=== PATIENT | female | born 1930 | race Caucasian/White ===

== ENCOUNTER 2017-01-08 01:02 | Inpatient (IN) ==
[2017-01-08] MEDS ORDERED: LACTATED RINGERS 1,000 ML IV ONE (01:45)
--- NOTE | 2017-01-08 01:47 | Emergency Department Note ---
IMoy Emily, am scribing for, and in the presence of, Abe Zamora MD 01:38. Noah Shepard Hans, MD, personally performed the services described in this documentation, ascribed by Eleonora Winter in my presence, and it is both accurate and complete . Arrival - Arrival Chief Complaint: Abdominal / Flank Pain Stated Complaint: Abd pain ED Nursing Triage Note: C/C abdominal pain, N/V started 01/07/17. Pt seen at [facility] ER by Agus Herzog small bowel obstruction. Pt has IV 20G R AC, has been given 1L NS, 2mg Morphine, 8mg Zofran. Pt has NG tube. Pt has history of SBO. Mode of Arrival: Stretcher Limitations: No Limitations Source: Patient Time Seen by Provider: 01/08/17 01:22 - History of Present Illness HPI Narrative: Pt is a 86 y/o female who came to ED by EMS with c/o abdomen pain with N/V that started yesterday. Pt was seen at [facility] and dx with SBO. Pt took laxative before going to [facility] small . Pt has NG tube with some relief. 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 Onset (ago): day(s) Consistency: constant Severity: moderate Severity scale (1-10): 7 Quality: aching Allergies/Adverse Reactions: Allergies Allergy/AdvReac Type Severity Reaction Status Date / Time Penicillins Allergy Intermediate RASH Verified 01/08/17 01:12 promethazine [From Phenergan] Allergy Intermediate RASH Verified 01/08/17 01:12 Home Medications: Home Medications Medication Instructions Recorded Confirmed Type Cholecalciferol (Vitamin D3) 1,000 unit PO DAILY 03/26/16 03/28/16 History [Vitamin D3] Cyanocobalamin Tab [Vitamin B12 1,000 mcg PO DAILY 03/26/16 03/28/16 History Tab] Esomeprazole Magnesium [Nexium] 20 mg PO DAILY 03/26/16 03/28/16 History Hyoscyamine Sulfate 0.125 mg PO Q4H 03/26/16 03/28/16 History Levothyroxine Tab [Synthroid Tab] 75 mcg PO DAILY 03/26/16 03/28/16 History Multivit-Min/FA/Lycopen/Lutein 1 each PO DAILY 03/26/16 03/28/16 History [Centrum Silver Tablet] Multivitamin (Ocuvite) [Ocuvite] 1 tablet PO DAILY 03/26/16 03/28/16 History Ondansetron Tab [Zofran Tab] 4 mg PO Q6HR 03/26/16 03/28/16 History Oxycodone HCl/Acetaminophen 1 each PO Q4-6H 03/26/16 03/28/16 History [Oxycodone-Acetaminophen 10-325] Simvastatin [Zocor] 40 mg PO DAILY 03/26/16 03/28/16 History amLODIPine [Norvasc] 5 mg PO DAILY 03/26/16 03/28/16 History Review of System - Review of System 12 point system: reviewed and no additional remarkable complaints except as stated - Review of System Constitutional: Absent: fever Respiratory: Absent: respiratory distress Cardiovascular: Absent: chest pain Gastrointestinal: Present: abdominal pain, nausea, vomiting Medical,Surgical,& Family Hx - Medical History Cardio: History of: Hypertension HEENT: History of: Eye Problem (cataracts) Gastrointestinal: History of: Bowel Obstruction, GERD, GI Problems (SBO) - Surgical History Surgical History: noncontributory Cardiac Surgeries: Patient Denies: Carotid Endarterectomy, Internal Defibrillator HEENT Surgeries: Surgical HX of: Eye Surgery (cataracts removed) Patient denies: Carotid Endarterectomy - Family History Family History: noncontributory Family History: Reports;: Family Cancer (Aunt Breast CA, Mother Lung CA), Family Diabetes (Daughter Type 1), Family Heart Disease (Father), Family Hypertension (Mother) Denies;: Family Anesthesia Reaction, Family Psychiatric Problems, Family Stroke - Social History Smoking Status: Never smoker Frequency of Alcohol Use: None Type of Drug Use: None Marital Status: Lives With:: Spouse Functional capacity: independent ambulation Exam Vital Signs: Vital Signs Temperature 98.1 F 01/08/17 01:02 Pulse Rate 90 01/08/17 01:02 Respiratory Rate 16 01/08/17 01:02 Blood Pressure 150/87 01/08/17 01:02 O2 Sat by Pulse Oximetry 97 01/08/17 01:02 - General General appearance: alert, in no apparent distress - Head Head exam: Present: atraumatic, normocephalic - Eye Eye exam: Present: PERRL, EOMI - ENT ENT exam: Present: mucous membranes moist. Absent: mucous membranes dry - Neck Neck exam: Present: full ROM. Absent: tenderness - Chest Chest inspection: Present: symmetric chest wall rise. Absent: tenderness - Respiratory Respiratory exam: Present: normal lung sounds bilaterally. Absent: respiratory distress - Cardiovascular Cardiovascular exam: Present: regular rate, normal rhythm, normal heart sounds - Abdominal Exam Abdominal exam: Present: soft, distention, tenderness (minimal RLQ), hypoactive bowel sounds. Absent: guarding, rebound, normal bowel sounds - Extremities Exam Extremities exam: Present: full ROM. Absent: tenderness, pedal edema - Neurological Exam Neurological exam: Present: alert, oriented X3, CN II-XII intact. Absent: motor sensory deficit - Psychiatric Psychiatric exam: Present: normal affect, normal mood - Skin Skin exam: Present: warm, dry Course Course Narrative: This patient was evaluated in the ER and her imaging and lab work from [place] was reviewed. Patient had a small bowel obstruction. I discussed her admission with Dr. Zeeshan WAGNER who agreed to admit her for bowel rest, NG tube decompression, and IV fluids and antibiotics. We will repeat her labs in the morning. Disposition Clinical Impression: Small bowel obstruction, Bowel obstruction Case discussed with: patient, patient's family Disposition: Still a Patient Condition: Stable Instructions: Bowel Obstruction (ED) Time of Disposition: 01:47
[2017-01-08] MEDS ORDERED: PROMETHAZINE 25 MG/1 ML VIAL IM PRN (02:37)
[2017-01-08] MEDS ORDERED: ACETAMINOPHEN 325 MG TABLET PO PRN (02:37)
[2017-01-08] MEDS: LACTATED RINGERS 1,000 ML IV SCH ×3 (03:40→23:16)
[2017-01-08] MEDS: CIPROFLOXACIN INJ 400 MG in PREMIX 1 EACH IV SCH ×2 (04:15→15:01)
[2017-01-08] MEDS: metroNIDAZOLE INJ 500 MG in PREMIX 1 EACH IV SCH ×3 (05:22→18:26)
[2017-01-08] MEDS: PANTOPRAZOLE 40 MG TABLET PO SCH (08:07)
[2017-01-08 08:49] LABS: Basophils # 0.1 10*3/uL (0.0-0.2); Basophils % 0.4 % (0.0-0.8); Eosinophils # 0.1 10*3/uL (0.0-0.87); Eosinophils % 0.9 % (0.00-10.9); Hematocrit 40.8 VOL% (35.7-47.0); Hemoglobin 14.1 GM/DL (12.0-16.0); Immature Granulocytes % 0.4 %; Immature Granulocytes Absolute 0.06 #; Lymphocytes # 1.5 10*3/uL (1.4-4.0); Lymphocytes % 11.2 % (21.3-54.2); Mean Corpuscular HGB Conc 34.6 GM/DL (32-36); Mean Corpuscular Hemoglobin 32 PG (27-34); Mean Corpuscular Volume 91.5 FL (87-102); Mean Platelet Volume 10.4 FL (9.6-12.0); Monocytes # 1.3 10*3/uL (0.11-0.8); Monocytes % 9.8 % (1.7-12.7); Neutrophils # 10.4 10*3/uL (1.4-7.4); Neutrophils % 77.3 % (38.7-73.9); Platelet Count 251 T/CUMM (130-400); Red Blood Count 4.46 MC/CUMM (3.8-5.5); Red Cell Distribution Width 13.7 % (9.3-17.3); White Blood Count 13.5 T/CUMM (4-12)
--- NOTE | 2017-01-08 09:13 | General Surg History&Physical ---
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 She is responded to conservative treatment therefore actually feels his gastric tube is in place. I had a long discussion with her and her family once again about conservative treatment. Obviously this would be better for her if we can avoid laparotomy. If she fails to respond to conservative treatment and we may have to consider surgery. Current Visit: Yes History of Present Illness Chief complaint: Abdominal pain History of present illness: Ms. Cordero is a 86 year old female Who yesterday developed a right sided abdominal pain and cramping. This was intermittent and is continued since admission. The pain is moderate in severity and does not radiate. It was associated with nausea and vomiting. This is the exact same symptoms that she has had with her multiple other previous small bowel obstructions. She has had multiple previous admissions for small bowel obstruction. She had surgery for bowel obstructions in the and and more recently has had nonoperative treatment which is been is successful. Her last episode was back in March. CT scan shows small bowel obstruction with a transition point in the right lower quadrant. Home Medications Medication Instructions Recorded Confirmed Type Cholecalciferol (Vitamin D3) 1,000 unit PO DAILY 03/26/16 01/08/17 History [Vitamin D3] Cyanocobalamin Tab [Vitamin B12 1,000 mcg PO DAILY 03/26/16 01/08/17 History Tab] Esomeprazole Magnesium [Nexium] 20 mg PO DAILY 03/26/16 01/08/17 History Levothyroxine Tab [Synthroid Tab] 75 mcg PO DAILY 03/26/16 01/08/17 History Multivit-Min/FA/Lycopen/Lutein 1 each PO DAILY 03/26/16 01/08/17 History [Centrum Silver Tablet] Ondansetron Tab [Zofran Tab] 4 mg PO Q6HR PRN 03/26/16 01/08/17 History Simvastatin [Zocor] 40 mg PO DAILY 03/26/16 01/08/17 History amLODIPine [Norvasc] 5 mg PO DAILY 03/26/16 01/08/17 History Ferrous Fumarate [Larisa Sequels] 50 mg PO QOTHER DAY 01/08/17 01/08/17 History Allergies Allergy/AdvReac Type Severity Reaction Status Date / Time Penicillins Allergy Intermediate RASH Verified 01/08/17 01:12 promethazine [From Phenergan] Allergy Intermediate RASH Verified 01/08/17 01:12 Medical,Surgical,& Family Hx - Medical History Cardio: History of: Hypertension HEENT: History of: Eye Problem (cataracts) Endocrine: History of: Thyroid Disorder Gastrointestinal: History of: Bowel Obstruction, GERD, GI Problems (SBO) - Surgical History Cardiac Surgeries: Patient Denies: Carotid Endarterectomy, Internal Defibrillator HEENT Surgeries: Surgical HX of: Eye Surgery (cataracts removed) Patient denies: Carotid Endarterectomy Orthopedic Surgeries: Surgical HX of;: Orthopedic Surgery (shoulder), Total Knee Replacement (partial knee replacement) - Family History Family History: Reports;: Family Cancer (Aunt Breast CA, Mother Lung CA), Family Diabetes (Daughter Type 1), Family Heart Disease (Father), Family Hypertension (Mother) Denies;: Family Anesthesia Reaction, Family Psychiatric Problems, Family Stroke - Social History Smoking Status: Never smoker Frequency of Alcohol Use: None Type of Drug Use: None Exam - Constitutional Vitals: Period Temp Pulse Resp BP Sys/Rondon Pulse Ox Last 24 Hr 98.0 F-98.8 F 79-90 16-20 135-150/65-87 95-98 General appearance: no acute distress - Head Head exam: Present: normocephalic - Eye Eye exam: Absent: scleral icterus - ENT Mouth exam: Present: normal voice - Neck Neck exam: Present: trachea midline. Absent: tenderness - Respiratory Respiratory exam: Present: clear to auscultation bilaterally. Absent: accessory muscle use - Cardiovascular Cardiovascular exam: Present: RRR - GI/Abdominal GI/Abdominal exam: Present: distended, hypoactive bowel sounds, soft. Absent: guarding, tenderness, rebound - Extremities Exam Extremities exam: Absent: edema - Back Exam Back exam: Present: normal inspection - Neurological Exam Neurological exam: Present: alert, oriented X3. Absent: motor sensory deficit Speech: Present: normal - Skin Skin exam: Present: normal color - Constitutional Constitutional: Absent: anorexia, chills, fever(s) - Cardiovascular Cardiovascular: Absent: chest pain at rest, chest pain with activity, dyspnea, dyspnea on exertion, syncope - Respiratory Respiratory: Absent: cough, dyspnea, hemoptysis, dyspnea on exertion - Gastrointestinal Gastrointestinal: Present: abdominal pain, bloating, cramping, nausea, vomiting. Absent: hematemesis, hematochezia, jaundice - Genitourinary Genitourinary: Absent: dysuria, hematuria - Musculoskeletal Musculoskeletal: Absent: back pain - Neurological Neurological: Absent: focal weakness, syncope - Endocrine Endocrine: Absent: polyuria Hematologic/Lymphatic: Absent: easy bleeding, easy bruising Results - Labs CBC & BMP: 01/08/17 08:22 Lab Results: I have reviewed the past 24 hour labs - Diagnostic Findings Procedure: CT Abdomen and Pelvis: report reviewed by me
[2017-01-08 09:17] LABS: Calcium 8.6 MG/DL (8.5-10.1); Osmolality,Calculated 276.5 MOS/KG (273-304); Potassium 3.8 MMOL/L (3.5-5.1)
[2017-01-08] MEDS: ONDANSETRON 4 MG/2 ML VIAL IV PRN (17:21)
[2017-01-08] MEDS: HYDROmorphone 2 MG/1 ML VIAL IV PRN (17:25)
[2017-01-09] MEDS: CIPROFLOXACIN INJ 400 MG in PREMIX 1 EACH IV SCH ×2 (02:44→15:49)
[2017-01-09] MEDS: metroNIDAZOLE INJ 500 MG in PREMIX 1 EACH IV SCH ×3 (05:02→18:03)
[2017-01-09] MEDS: LACTATED RINGERS 1,000 ML IV SCH ×3 (07:04→20:50)
--- NOTE | 2017-01-09 07:43 | General Surgery Progress Note ---
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 She is responded to conservative treatment therefore actually feels his gastric tube is in place. I had a long discussion with her and her family once again about conservative treatment. Obviously this would be better for her if we can avoid laparotomy. If she fails to respond to conservative treatment and we may have to consider surgery. 01/09: She feels better but still has some cramping and is not passing flatus or bowel movement. I think that she is still obstructed. She is having significant nasogastric output. I have explained to her and her daughter that I am less optimistic that conservative treatment is going to work this admission. I have offered surgery today but she has declined. She would like to give it another day which is reasonable. She understands that if she does not open up with conservative treatment that she will require lysis of adhesions. Current Visit: Yes Subjective Patient reports: Present: feels better, pain is less, no flatus, no bowel movement. Absent: nausea, vomiting Exam - Constitutional Vitals: Period Temp Pulse Resp BP Sys/Rondon Pulse Ox Last 24 Hr 97.0 F-97.8 F 75-83 18-20 110-132/54-67 90-100 General appearance: no acute distress - Head Head exam: Present: normocephalic - Eye Eye exam: Absent: scleral icterus - Respiratory Respiratory exam: Absent: accessory muscle use - GI/Abdominal GI/Abdominal exam: Present: distended, soft. Absent: tenderness, rebound Results - Labs CBC & BMP: 01/08/17 08:22 01/08/17 08:22 Lab Results: I have reviewed the past 24 hour labs Specialty Discharge - Follow Up or Referrals
[2017-01-09] MEDS: PANTOPRAZOLE 40 MG TABLET PO SCH (08:16)
[2017-01-09] MEDS: LEVOTHYROXINE 75 MCG TABLET PO SCH (09:50)
--- NOTE | 2017-01-09 10:01 | CT Report ---
CT abdomen pelvis wo con Indication: Small bowel obstruction. Comparison: CT of the abdomen and pelvis 01/07/2017. Technique: CT of the abdomen and pelvis was performed without administration of intravenous contrast. The CT examination was performed using one or more of the following dose reduction techniques: Automatic exposure control, adjustment of the mA and kV according to patient size, use of acute or iterative reconstruction techniques. Findings: Lower chest: NG tube is present in the lower chest. No acute process is suggested within the lower chest. Liver: No mass lesions or acute findings are demonstrated. Gallbladder: Surgical absence of the gallbladder is demonstrated. Spleen: Spleen is normal in size and appearance. Pancreas: Pancreas demonstrates no significant abnormality. Adrenal glands: The adrenal glands demonstrate no significant abnormalities. Kidneys: Exophytic cortical lesion of the posterior right renal cortex measures approximately 2 cm in size and may represent small cysts. Further evaluation is not possible secondary to lack of intravenous contrast. Kidneys are otherwise unremarkable. Aorta: Intimal calcification of the aorta is present. Inferior vena cava: The inferior vena cava demonstrates no significant abnormality. Lymph nodes: Borderline to minimally enlarged mesenteric lymph nodes are noted within the root of the mesentery. These measure up to 6 mm in short axis dimension. Additional more caudal mesenteric lymph nodes measure up to 8 mm short axis dimension. Stomach and bowel: Stomach contains an NG tube is otherwise unremarkable. The duodenum demonstrates no significant abnormality. The large bowel is decompressed. Suture line within the central lower abdomen appears to represent enteric anastomosis with terminal ileum and residual large bowel. There is a small amount stool present at the level of anastomosis. Bowel loops within the right abdomen continue to demonstrate a focal segment of small bowel which contains stool and is dilated measuring up to 4.7 x 0.2 cm. No distinct mesenteric twisting is present. No distinct closed loop obstruction is present, however this region of small bowel appears to represent obstructed bowel. Evaluation of bowel wall is limited secondary to lack of intravenous contrast. Intrapelvic contents: Small amount of free fluid is dependently located within the pelvis. Intrapelvic contents demonstrate no acute findings. Skeletal structures: Focal loss of intervertebral disc space at L3-4 is present with endplate irregularity and vacuum disc phenomenon. This finding is likely degenerative in etiology. Facet arthropathy additionally is noted at L2-3 and L3-4. Soft tissues and muscular structure of the body wall: Demonstrate no significant abnormalities. Impression: 1. Segmental obstruction of small bowel is noted within the right abdomen. No distinct closed loop or midgut volvulus is identified. Exact transition point cannot be identified. 2. Since comparison study, increased stranding within the mesentery is noted in the region of small bowel obstruction which could reflect vascular congestion or inflammatory changes. Borderline to minimally enlarged mesenteric lymph nodes are present. The amount of free fluid has increased within the pelvis. 3. Bowel wall evaluation is limited by lack of intravenous contrast. 01/09/2017 9:48 AM PROCEDURE INTERPRETED AT [facility] DEPARTMENT OF RADIOLOGY Final Report Signed by: Dr. Colt Sr
[2017-01-09] MEDS ORDERED: PHENOL 1.4% THROAT SPRAY 177 ML BOTTLE PO PRN (14:28)
--- NOTE | 2017-01-09 16:28 | EKG Report ---
Stationary ECG Study [facility] Test Date: 01/09/2017 4:27:39 PM Pat Name: [facility] Department: Room: 344 Gender: F Partridge Farmer: : 1930 Requested by: Orville Cullen Order Number: [id number] Reading MD: MARC ZAMORA Intervals [place] Rate: 93 P: 59 DE: 149 QRS: -15 QRSD: 161 T: 30 QT: 416 QTc: 467 Interpretive Statements SINUS RHYTHM POSSIBLE LEFT ATRIAL ENLARGEMENT RIGHT BUNDLE BRANCH BLOCK Electronically Signed On 01-10-17 21:50:28 CDT by MARC ZAMORA [email or web address]
[2017-01-10] MEDS: CIPROFLOXACIN INJ 400 MG in PREMIX 1 EACH IV SCH ×2 (02:30→14:56)
[2017-01-10] MEDS: metroNIDAZOLE INJ 500 MG in PREMIX 1 EACH IV SCH ×3 (03:55→18:20)
[2017-01-10] MEDS ORDERED: FAMOTIDINE 20 MG TABLET PO ONE (07:00)
[2017-01-10] MEDS: LACTATED RINGERS 1,000 ML IV SCH ×4 (07:08→21:00)
--- NOTE | 2017-01-10 07:31 | General Surgery Progress Note ---
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 She is responded to conservative treatment therefore actually feels his gastric tube is in place. I had a long discussion with her and her family once again about conservative treatment. Obviously this would be better for her if we can avoid laparotomy. If she fails to respond to conservative treatment and we may have to consider surgery. 01/09: She feels better but still has some cramping and is not passing flatus or bowel movement. I think that she is still obstructed. She is having significant nasogastric output. I have explained to her and her daughter that I am less optimistic that conservative treatment is going to work this admission. I have offered surgery today but she has declined. She would like to give it another day which is reasonable. She understands that if she does not open up with conservative treatment that she will require lysis of adhesions. 01/10: She now is agreeable to laparotomy and lysis of adhesions. She still appears to be obstructed. The patient's family insisted on her repeat CT scan yesterday to confirm that she was still obstructed and the still showed small bowel obstruction as I had predicted. She now is desiring surgery. Procedure and risk and once again have been discussed in detail and she wishes to proceed Current Visit: Yes Subjective Patient reports: Present: still having pain, pain is less. Absent: nausea, vomiting Exam - Constitutional Vitals: Period Temp Pulse Resp BP Sys/Rondon Pulse Ox Last 24 Hr 97.4 F-99.2 F 75-92 16-20 128-145/64-88 92-96 General appearance: no acute distress - Respiratory Respiratory exam: Absent: accessory muscle use - GI/Abdominal GI/Abdominal exam: Present: soft. Absent: distended, tenderness, rebound Results - Labs CBC & BMP: 01/08/17 08:22 01/08/17 08:22 Quality Measures - VTE Contraindication to Pharmacological VTE Prophylaxis: High Risk of Bleeding Specialty Discharge - Follow Up or Referrals
[2017-01-10] MEDS ORDERED: PHENYLEPHRINE 1 MG/10 ML SYRINGE IV ONE (09:50)
[2017-01-10] MEDS ORDERED: NEOSTIGMINE 10 MG/10 ML VIAL ONE (09:50)
[2017-01-10] MEDS ORDERED: LIDOCAINE 1% 5 ML VIAL ONE (09:50)
[2017-01-10] MEDS ORDERED: ONDANSETRON 4 MG/2 ML VIAL ONE ×2 (09:50→13:37)
[2017-01-10] MEDS ORDERED: SUCCINYLCHOLINE 200 MG/10 ML VIAL ONE (09:50)
[2017-01-10] MEDS ORDERED: DEXAMETHASONE 4 MG/1 ML VIAL ONE (09:50)
[2017-01-10] MEDS ORDERED: ROCURONIUM 100 MG/10 ML VIAL IV ONE (09:50)
[2017-01-10] MEDS ORDERED: KETOROLAC 30 MG/1 ML VIAL ONE (09:50)
[2017-01-10] MEDS ORDERED: GLYCOPYRROLATE 0.4 MG/2 ML VIAL ONE (09:50)
[2017-01-10] MEDS ORDERED: PROPOFOL 200 MG/20 ML VIAL IV ONE (09:50)
--- NOTE | 2017-01-10 13:16 | Operative Note ---
Date of procedure: 01/10/17 Pre-op diagnosis: Small bowel obstruction Post-op diagnosis: other (Frozen hostile abdomen with extensive adhesions) Procedure: Laparotomy with complete small bowel enterolysis Findings and technique: After informed consent was obtained the patient was brought the operating room and placed in supine position. After successful induction of general anesthesia the patient's abdomen was prepped and draped in usual sterile fashion. Patient had 5 scars on her abdomen and I selected the inferior aspect of an old midline scar. Sharp dissection was carried down to the fascia where there were fascial newton encountered and these were manually removed. I then went through the fascia and the patient was found to have essentially no retinal cavity. There was adherent omentum and small bowel to the anterior abdominal wall. This was tediously dissected free freeing up the anterior abdominal wall over the course of about an hour. I then did further exploration of the abdomen and started on the left side with her left adhesion less adhesions. 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 There was no small bowel in the left side of the abdomen. The right side of the abdomen consisted of a adherent mass of small bowel. I discussed the case intraoperatively with radiology with the CT scan present we felt like the point of obstruction was in the right lower quadrant below the inferior most staple from her right paramedian incision. This was the area of densest adhesions. I found decompressed small bowel and worked back from this very tediously less than a millimeter in the time into the inflamed area where I dissected the bowel free. There was actually a tight kinked loop of small bowel with dilated bowel proximal. There were no real adhesive bands. The bowel itself on all surfaces was encased in adhesion and all of this was tediously dissected free over the course of several hours. No small bowel enterotomies occurred. Once I had the bowel free I then positioned it and what I felt was a anatomic position for this patient without any evidence of kinking. The abdomen was irrigated and good hemostasis noted. The midline fascia was closed with running #1 PDS suture and sponge and instrument counts were correct at the time of closure. The skin was closed with skin clips. She appeared to tolerate the procedure well Anesthesia: GETA Surgeon / Physician: El Byers III. Estimated blood loss: minimal Specimens: none sent Condition: stable Disposition: PACU Results - Labs CBC & BMP: 01/08/17 08:22 01/08/17 08:22 Discharge Plan - Discharge Medications No Action Cholecalciferol (Vitamin D3) [Vitamin D3] 1,000 unit PO DAILY Ondansetron Tab [Zofran Tab] 4 mg PO Q6HR PRN PRN Reason: Nausea Multivit-Min/FA/Lycopen/Lutein [Centrum Silver Tablet] 1 each PO DAILY Cyanocobalamin Tab [Vitamin B12 Tab] 1,000 mcg PO DAILY amLODIPine [Norvasc] 5 mg PO DAILY Simvastatin [Zocor] 40 mg PO DAILY Levothyroxine Tab [Synthroid Tab] 75 mcg PO DAILY Esomeprazole Magnesium [Nexium] 20 mg PO DAILY Ferrous Fumarate [Larisa Sequels] 50 mg PO QOTHER DAY - Follow Up or Referral - Forms/Instructions Instructions: Bowel Obstruction (ED)
[2017-01-10] MEDS: PANTOPRAZOLE 40 MG TABLET PO SCH (13:18)
[2017-01-10] MEDS: LEVOTHYROXINE 75 MCG TABLET PO SCH (13:19)
--- NOTE | 2017-01-10 13:33 | Anesthesia Post-Op ---
Anesthesia Post OP - Post Ansesthetic Evaluation Patient seen in post op: Yes Resp: within normal limits CV: within normal limits Mental: within normal limits Temp: within normal limits [id number]-[id number]: within normal limits Nausea and Vomiting: within normal limits Pain: within normal limits
[2017-01-10] MEDS ORDERED: fentaNYL 100 MCG/2 ML VIAL ONE (13:34)
[2017-01-10] MEDS ORDERED: LACTATED RINGERS 2,000 ML IV ONE (13:34)
[2017-01-10] MEDS ORDERED: SEVOFLURANE 1 UNIT/15 MINUTE INH ONE (13:34)
[2017-01-10] MEDS ORDERED: MIDAZOLAM 2 MG/2 ML VIAL ONE (13:34)
[2017-01-10] MEDS ORDERED: ACETAMINOPHEN 1,000 MG/100 ML VIAL IV ONE (13:34)
[2017-01-10] MEDS ORDERED: ONDANSETRON 4 MG/2 ML VIAL IV PRN (13:36)
[2017-01-10] MEDS ORDERED: HYDROmorphone 2 MG/1 ML VIAL ONE (13:37)
[2017-01-10] MEDS: HYDROmorphone 2 MG/1 ML VIAL IV PRN ×2 (13:38→13:43)
--- NOTE | 2017-01-10 16:10 | Hospitalist Consult Note ---
Assessment and Plan (1) S/P exploratory laparotomy Status: Acute Assessment and plan: The patient is recovering from laparotomy. Dr. Zeeshan Nicole did not require an enterotomy during the procedure and we anticipate bowel function should return sooner than it would otherwise. The patient will continue on NG suction until Dr. Zeeshan Nicole allows her oral intake. We can hold her thyroid supplement and antihypertensive regimen until that time. If the patient's blood pressure trends upward we could put on a Catapres patch but I am going to wait until tomorrow to consider that. Current Visit: Yes (2) Hypertension Status: Chronic Current Visit: Yes Qualifiers: Hypertension type: essential hypertension Qualified Code(s): I10 - Essential (primary) hypertension (3) Hypothyroidism Status: Chronic Current Visit: Yes Qualifiers: Hypothyroidism type: acquired Qualified Code(s): E03.9 - Hypothyroidism, unspecified History of Present Illness - Data of Consult Patient: new to practice Consult date: 01/10/17 Requesting Physician: El Byers III. - Consult Narrative Reason for consult: Medical Mgt History of present illness: Ms. Cordero is a 86 year old female with a history of hypothyroidism, hypertension , and gastroesophageal reflux disease. The patient had laparotomy with small bowel enteroclysis. Dr. Byers was able to complete the surgery without enterotomy. The patient is now awake and alert in the intensive care unit and recovering nicely from her surgery. The patient is disoriented due to the anesthetic but feels well and does not complain of shortness of breath or angina. CC: El Byers III., - Home Medications and Allergies Home Medications: Home Medications Medication Instructions Recorded Confirmed Type Cholecalciferol (Vitamin D3) 1,000 unit PO DAILY 03/26/16 01/08/17 History [Vitamin D3] Cyanocobalamin Tab [Vitamin B12 1,000 mcg PO DAILY 03/26/16 01/08/17 History Tab] Esomeprazole Magnesium [Nexium] 20 mg PO DAILY 03/26/16 01/08/17 History Levothyroxine Tab [Synthroid Tab] 75 mcg PO DAILY 03/26/16 01/08/17 History Multivit-Min/FA/Lycopen/Lutein 1 each PO DAILY 03/26/16 01/08/17 History [Centrum Silver Tablet] Ondansetron Tab [Zofran Tab] 4 mg PO Q6HR PRN 03/26/16 01/08/17 History Simvastatin [Zocor] 40 mg PO DAILY 03/26/16 01/08/17 History amLODIPine [Norvasc] 5 mg PO DAILY 03/26/16 01/08/17 History Ferrous Fumarate [Larisa Sequels] 50 mg PO QOTHER DAY 01/08/17 01/08/17 History Allergies/Adverse Reactions: Allergies Allergy/AdvReac Type Severity Reaction Status Date / Time Penicillins Allergy Intermediate RASH Verified 01/08/17 01:12 promethazine [From Phenergan] Allergy Intermediate RASH Verified 01/08/17 01:12 Medical,Surgical,& Family Hx - Medical History Cardio: History of: Hypertension HEENT: History of: Eye Problem (cataracts) Endocrine: History of: Thyroid Disorder Gastrointestinal: History of: Bowel Obstruction, GERD, GI Problems (SBO) - Surgical History Cardiac Surgeries: Patient Denies: Carotid Endarterectomy, Internal Defibrillator HEENT Surgeries: Surgical HX of: Eye Surgery (cataracts removed) Patient denies: Carotid Endarterectomy Orthopedic Surgeries: Surgical HX of;: Orthopedic Surgery (shoulder), Total Knee Replacement (partial knee replacement) - Family History Family History: Reports;: Family Cancer (Aunt Breast CA, Mother Lung CA), Family Diabetes (Daughter Type 1), Family Heart Disease (Father), Family Hypertension (Mother) Denies;: Family Anesthesia Reaction, Family Psychiatric Problems, Family Stroke - Social History Smoking Status: Never smoker Frequency of Alcohol Use: None Type of Drug Use: None Marital Status: Lives With:: Spouse Functional capacity: independent ambulation 12 point system: reviewed and no additional remarkable complaints except as stated Exam - Constitutional Vitals: Period Temp Pulse Resp BP Sys/Rondon Pulse Ox Last 24 Hr 97.4 F-98.5 F 75-97 11-20 126-149/56-88 92-99 Exam: Constitutional System: Mild distress on account of postoperative discomfort. No tremulousness. Head: Normocephalic, atraumatic. Ears, Nose and Throat System: No evidence of Otitis or Mastoiditis. No epistaxis or discharge Eyes System: Pupils equal, round, and reactive. Extraocular muscles intact. Neck: Supple, without adenopathy, No jugular venous distention. No thyromegaly , neck mass, or prior surgery apparent. Respiratory System: Chest clear to auscultation. Cardiovascular System: Heart with regular rate and rhythm. No murmur. GI System: Abdomen surgical dressing in place Musculoskeletal System: limbs with no pedal edema. Full distal pulses. Neurological System: No discernable sensory deficit. No aphasia Psychiatric System: Conversation is rational Results - Labs CBC & BMP: 01/08/17 08:22 01/08/17 08:22 Lab Results: I have reviewed the past 24 hour labs Quality Measures - VTE Contraindication to Pharmacological VTE Prophylaxis: High Risk of Bleeding Specialty Discharge - Follow Up or Referrals
[2017-01-11] MEDS: metroNIDAZOLE INJ 500 MG in PREMIX 1 EACH IV SCH ×3 (02:37→18:48)
[2017-01-11] MEDS: CIPROFLOXACIN INJ 400 MG in PREMIX 1 EACH IV SCH ×2 (02:37→14:00)
[2017-01-11] MEDS: LACTATED RINGERS 1,000 ML IV SCH ×3 (02:41→18:48)
[2017-01-11] MEDS: HYDROmorphone 2 MG/1 ML VIAL IV PRN ×2 (04:52→08:50)
[2017-01-11 05:18] LABS: Basophils % 0.1 % (0.0-0.8); Hematocrit 32.6 VOL% (35.7-47.0); Immature Granulocytes % 0.8 %; Immature Granulocytes Absolute 0.09 #; Lymphocytes # 0.8 10*3/uL (1.4-4.0); Lymphocytes % 6.4 % (21.3-54.2); Mean Corpuscular HGB Conc 34.7 GM/DL (32-36); Mean Corpuscular Hemoglobin 32 PG (27-34); Mean Corpuscular Volume 91.6 FL (87-102); Mean Platelet Volume 10.6 FL (9.6-12.0); Monocytes # 0.9 10*3/uL (0.11-0.8); Monocytes % 7.7 % (1.7-12.7); Neutrophils # 10.1 10*3/uL (1.4-7.4); Platelet Count 202 T/CUMM (130-400); Red Cell Distribution Width 13.1 % (9.3-17.3); White Blood Count 11.9 T/CUMM (4-12)
[2017-01-11 05:36] LABS: Red Blood Count 3.56 MC/CUMM (3.8-5.5)
[2017-01-11 05:37] LABS: Hemoglobin 11.3 GM/DL (12.0-16.0)
[2017-01-11 06:02] LABS: Calcium 7.3 MG/DL (8.5-10.1); Osmolality,Calculated 282.3 MOS/KG (273-304); Potassium 3.3 MMOL/L (3.5-5.1)
--- NOTE | 2017-01-11 06:39 | Event Note ---
Postoperative day #1 for laparotomy and extensive lysis of adhesions. Patient had a hospital frozen abdomen. This was a prolonged procedure but she has done well. She has much less nasogastric output. She is awake and alert without complaints in the ICU. Her vital signs are stable and her urine output is adequate. Her lab work looks okay. Past she could probably go to a regular room later today or in the mornings. We will need to get her up out of bed.
[2017-01-11] MEDS: POTASSIUM CHLORIDE RIDER 10 MEQ in PREMIX 1 EACH IV PRN ×3 (07:00→09:00)
[2017-01-11] MEDS: PANTOPRAZOLE 40 MG VIAL IV SCH (08:52)
--- NOTE | 2017-01-11 09:27 | Hospitalist Progress Note ---
Assessment and Plan (1) S/P exploratory laparotomy Status: Acute Assessment and plan: The patient is recovering from laparotomy. Dr. Zeeshan Nicole did not require an enterotomy during the procedure and we anticipate bowel function should return sooner than it would otherwise. The patient will continue on NG suction until Dr. Zeeshan Nicole allows her oral intake. We can hold her thyroid supplement and antihypertensive regimen until that time. I have ordered additional potassium repletion and we will recheck electrolytes in the morning. Current Visit: Yes (2) Hypertension Status: Chronic Current Visit: Yes Qualifiers: Hypertension type: essential hypertension Qualified Code(s): I10 - Essential (primary) hypertension (3) Hypothyroidism Status: Chronic Current Visit: Yes Qualifiers: Hypothyroidism type: acquired Qualified Code(s): E03.9 - Hypothyroidism, unspecified Hospitalist: Subjective Interval history: The patient is awake and alert this morning. Bowel sounds are hypoactive. No new complications are identified. The patient is mildly hypokalemic. Exam - Constitutional Vitals: Period Temp Pulse Resp BP Sys/Rondon Pulse Ox Last 24 Hr 97.0 F-98.5 F 72-97 10-20 105-156/47-69 94-99 Exam: Constitutional System: Mild distress on account of postoperative discomfort. No tremulousness. Head: Normocephalic, atraumatic. Ears, Nose and Throat System: No evidence of Otitis or Mastoiditis. No epistaxis or discharge Eyes System: Pupils equal, round, and reactive. Extraocular muscles intact. Neck: Supple, without adenopathy, No jugular venous distention. No thyromegaly , neck mass, or prior surgery apparent. Respiratory System: Chest clear to auscultation. Cardiovascular System: Heart with regular rate and rhythm. No murmur. GI System: Abdomen surgical dressing in place Musculoskeletal System: limbs with no pedal edema. Full distal pulses. Neurological System: No discernable sensory deficit. No aphasia Psychiatric System: Conversation is rational Results - Labs CBC & BMP: 01/11/17 04:35 01/11/17 04:35 Lab Results: I have reviewed the past 24 hour labs Quality Measures - VTE Contraindication to Pharmacological VTE Prophylaxis: High Risk of Bleeding Specialty Discharge - Follow Up or Referrals
[2017-01-11] MEDS: POTASSIUM CHLORIDE RIDER 10 MEQ in PREMIX 1 EACH IV SCH ×3 (10:00→12:00)
[2017-01-11] MEDS: ONDANSETRON 4 MG/2 ML VIAL IV PRN (12:15)
[2017-01-12] MEDS: ZALEPLON 5 MG CAPSULE PO PRN (00:18)
[2017-01-12] MEDS: CIPROFLOXACIN INJ 400 MG in PREMIX 1 EACH IV SCH ×2 (01:44→14:58)
[2017-01-12 02:29] LABS: Basophils % 0.4 % (0.0-0.8); Eosinophils # 0.2 10*3/uL (0.0-0.87); Eosinophils % 1.4 % (0.00-10.9); Hematocrit 33.1 VOL% (35.7-47.0); Hemoglobin 11.3 GM/DL (12.0-16.0); Immature Granulocytes % 1.1 %; Immature Granulocytes Absolute 0.12 #; Lymphocytes # 0.9 10*3/uL (1.4-4.0); Lymphocytes % 8.3 % (21.3-54.2); Mean Corpuscular HGB Conc 34.1 GM/DL (32-36); Mean Corpuscular Hemoglobin 31 PG (27-34); Mean Corpuscular Volume 91.4 FL (87-102); Mean Platelet Volume 10.9 FL (9.6-12.0); Monocytes % 8.6 % (1.7-12.7); Neutrophils # 8.9 10*3/uL (1.4-7.4); Neutrophils % 80.2 % (38.7-73.9); Platelet Count 220 T/CUMM (130-400); Red Blood Count 3.62 MC/CUMM (3.8-5.5); Red Cell Distribution Width 13.2 % (9.3-17.3); White Blood Count 11.1 T/CUMM (4-12)
[2017-01-12 03:14] LABS: Calcium 7.6 MG/DL (8.5-10.1); Osmolality,Calculated 281.1 MOS/KG (273-304); Potassium 3.5 MMOL/L (3.5-5.1)
[2017-01-12] MEDS: ONDANSETRON 4 MG/2 ML VIAL IV PRN (03:33)
[2017-01-12] MEDS: metroNIDAZOLE INJ 500 MG in PREMIX 1 EACH IV SCH ×3 (03:35→18:45)
[2017-01-12] MEDS: LACTATED RINGERS 1,000 ML IV SCH ×3 (03:38→20:25)
[2017-01-12] MEDS: PANTOPRAZOLE 40 MG VIAL IV SCH (08:56)
[2017-01-12] MEDS: LEVOTHYROXINE 75 MCG TABLET PO SCH (08:56)
[2017-01-12] MEDS: POTASSIUM CHLORIDE RIDER 10 MEQ in PREMIX 1 EACH IV PRN ×2 (09:01→10:15)
--- NOTE | 2017-01-12 09:14 | Event Note ---
01/12/2017. Patient status post small bowel resection for small bowel obstruction and is on the floor at this time after being in the unit yesterday. She generally looks pretty good NG tube drainage is minimal and decreasing. There is some activity but no bowel movement at this time. Abdomen appears soft incisions look clean and dry. Will move cautiously at this time but let her have some sips of water and ice chips. We will clamp the NG tube today and if there is no nausea or she has a bowel movement we may be able to pull it tomorrow and try some liquids.
--- NOTE | 2017-01-12 10:03 | XRay Report ---
Exam: XR chest 1V portable Indication: NG tube placement Comparison study: 06/07/2016 Findings: Esophagogastric tube is noted within the stomach with the tip directed inferiorly.. Impression: As above. PROCEDURE INTERPRETED AT [facility] DEPARTMENT OF RADIOLOGY Final Report Signed by: Arnol Fields
--- NOTE | 2017-01-12 13:59 | Hospitalist Progress Note ---
Assessment and Plan (1) Small bowel obstruction Status: Acute Assessment and plan: Surgery managing Starting sips Current Visit: Yes (2) Hypertension Status: Chronic Assessment and plan: Controlled Current Visit: Yes Qualifiers: Hypertension type: essential hypertension Qualified Code(s): I10 - Essential (primary) hypertension (3) S/P exploratory laparotomy Status: Acute Current Visit: Yes (4) Hypothyroidism Status: Chronic Assessment and plan: Holding levothyroxine Current Visit: Yes Qualifiers: Hypothyroidism type: acquired Qualified Code(s): E03.9 - Hypothyroidism, unspecified Hospitalist: Subjective Interval history: Reports some mild pain. Denies nausea. NGT still place, has been clamped. Starting some sips. Exam - Constitutional Vitals: Period Temp Pulse Resp BP Sys/Rondon Pulse Ox Last 24 Hr 97.4 F-98.8 F 81-89 14-20 111-139/42-73 94-100 General appearance: over weight - Head Head exam: Present: normocephalic, atraumatic - Eye Eye exam: Present: EOMI Pupils: Present: JAVID - ENT ENT exam: Present: normal exam - Neck Neck exam: Present: normal inspection - Respiratory Respiratory exam: Present: clear to auscultation bilaterally. Absent: wheezes - Cardiovascular Cardiovascular exam: Present: regular rate and rhythm - GI/Abdominal GI/Abdominal exam: Present: distended, hypoactive bowel sounds. Absent: tenderness, rebound - Extremities Exam Extremities exam: Present: normal inspection - Back Exam Back exam: Present: normal inspection - Neurological Exam Neurological exam: Present: alert, oriented X3 - Psychiatric Psychiatric exam: Present: normal affect, normal mood - Skin Skin exam: Present: warm, intact Results - Labs CBC & BMP: 01/12/17 01:10 01/12/17 01:10 Quality Measures - VTE Contraindication to Pharmacological VTE Prophylaxis: High Risk of Bleeding Specialty Discharge - Follow Up or Referrals
[2017-01-13] MEDS: LACTATED RINGERS 1,000 ML IV SCH ×3 (01:44→22:53)
[2017-01-13] MEDS: CIPROFLOXACIN INJ 400 MG in PREMIX 1 EACH IV SCH ×2 (01:45→14:32)
[2017-01-13] MEDS: metroNIDAZOLE INJ 500 MG in PREMIX 1 EACH IV SCH ×3 (04:20→18:34)
[2017-01-13 06:00] LABS: Basophils % 0.5 % (0.0-0.8); Eosinophils # 0.3 10*3/uL (0.0-0.87); Eosinophils % 3.4 % (0.00-10.9); Hemoglobin 11.6 GM/DL (12.0-16.0); Immature Granulocytes % 1.6 %; Immature Granulocytes Absolute 0.12 #; Lymphocytes # 0.7 10*3/uL (1.4-4.0); Lymphocytes % 9.3 % (21.3-54.2); Mean Corpuscular HGB Conc 34.1 GM/DL (32-36); Mean Corpuscular Hemoglobin 31 PG (27-34); Mean Corpuscular Volume 90.7 FL (87-102); Mean Platelet Volume 10.6 FL (9.6-12.0); Monocytes # 0.8 10*3/uL (0.11-0.8); Monocytes % 10.6 % (1.7-12.7); Neutrophils # 5.8 10*3/uL (1.4-7.4); Neutrophils % 74.6 % (38.7-73.9); Platelet Count 236 T/CUMM (130-400); Red Blood Count 3.75 MC/CUMM (3.8-5.5); Red Cell Distribution Width 13.2 % (9.3-17.3); White Blood Count 7.7 T/CUMM (4-12)
[2017-01-13] MEDS: LEVOTHYROXINE 75 MCG TABLET PO SCH (08:39)
[2017-01-13] MEDS: PANTOPRAZOLE 40 MG VIAL IV SCH (08:40)
--- NOTE | 2017-01-13 10:12 | Hospitalist Progress Note ---
Assessment and Plan (1) Small bowel obstruction Status: Acute Assessment and plan: Surgery managing Tolerating sips of water NGT is clamped Current Visit: Yes (2) Hypertension Status: Chronic Assessment and plan: Controlled Current Visit: Yes Qualifiers: Hypertension type: essential hypertension Qualified Code(s): I10 - Essential (primary) hypertension (3) S/P exploratory laparotomy Status: Acute Current Visit: Yes (4) Hypothyroidism Status: Chronic Assessment and plan: Holding levothyroxine Current Visit: Yes Qualifiers: Hypothyroidism type: acquired Qualified Code(s): E03.9 - Hypothyroidism, unspecified Hospitalist: Subjective Interval history: No acute events overnight. Nausea only with walking around. Pain is controlled. Tolerating sips of water. Exam - Constitutional Vitals: Period Temp Pulse Resp BP Sys/Rondon Pulse Ox Last 24 Hr 96.5 F-99.0 F 87-93 17-20 138-149/65-72 92-100 General appearance: over weight - Head Head exam: Present: normocephalic, atraumatic - Eye Eye exam: Present: EOMI Pupils: Present: JAVID - ENT ENT exam: Present: normal exam - Neck Neck exam: Present: normal inspection - Respiratory Respiratory exam: Present: clear to auscultation bilaterally. Absent: wheezes - Cardiovascular Cardiovascular exam: Present: regular rate and rhythm - GI/Abdominal GI/Abdominal exam: Present: hypoactive bowel sounds, tenderness, soft. Absent: rebound - Extremities Exam Extremities exam: Present: normal inspection - Back Exam Back exam: Present: normal inspection - Neurological Exam Neurological exam: Present: alert, oriented X3 - Psychiatric Psychiatric exam: Present: normal affect, normal mood - Skin Skin exam: Present: warm, intact Results - Labs CBC & BMP: 01/13/17 05:42 01/12/17 01:10 Quality Measures - VTE Contraindication to Pharmacological VTE Prophylaxis: High Risk of Bleeding Specialty Discharge - Follow Up or Referrals
--- NOTE | 2017-01-13 10:26 | Event Note ---
01/13/2017. Patient is afebrile doing fairly well. She has had her NG tube clamped and has had no nausea. The abdomen is soft and bowel sounds are active at this time. Mild distention in the right epigastric area but otherwise looks pretty good. No bowel movement at this time. Since she seems better has had no nausea I think we will go ahead and plan to pull her NG tube and her Resendiz catheter get her more active. Stay with just the water and maybe a little hard candy at times until we see that she is having bowel movements.
[2017-01-13] MEDS: ZALEPLON 5 MG CAPSULE PO PRN (22:13)
[2017-01-13] MEDS: ONDANSETRON 4 MG/2 ML VIAL IV PRN (22:13)
[2017-01-14] MEDS: LACTATED RINGERS 1,000 ML IV SCH ×3 (01:30→14:46)
[2017-01-14] MEDS: CIPROFLOXACIN INJ 400 MG in PREMIX 1 EACH IV SCH ×2 (02:41→14:44)
[2017-01-14] MEDS: metroNIDAZOLE INJ 500 MG in PREMIX 1 EACH IV SCH ×3 (03:52→18:30)
--- NOTE | 2017-01-14 07:33 | Event Note ---
She feels better. She is passing flatus. She has no cramping abdominal pain or nausea or vomiting. We will advance her diet and cut back her IV fluids.
[2017-01-14] MEDS: LEVOTHYROXINE 75 MCG TABLET PO SCH (09:15)
[2017-01-14] MEDS: PANTOPRAZOLE 40 MG VIAL IV SCH (09:17)
--- NOTE | 2017-01-14 10:20 | Hospitalist Progress Note ---
Assessment and Plan (1) Small bowel obstruction Status: Acute Assessment and plan: Surgery managing Tolerating diet Current Visit: Yes (2) Hypertension Status: Chronic Assessment and plan: Restarting amlodipine today Current Visit: Yes Qualifiers: Hypertension type: essential hypertension Qualified Code(s): I10 - Essential (primary) hypertension (3) S/P exploratory laparotomy Status: Acute Current Visit: Yes (4) Hypothyroidism Status: Chronic Assessment and plan: Levothyroxine has been restarted Current Visit: Yes Qualifiers: Hypothyroidism type: acquired Qualified Code(s): E03.9 - Hypothyroidism, unspecified Hospitalist: Subjective Interval history: No acute events overnight. Patient feels better today. Seen sitting in chair. Tolerating diet. Pain is controlled. Exam - Constitutional Vitals: Period Temp Pulse Resp BP Sys/Rondon Pulse Ox Last 24 Hr 97.3 F-98.4 F 82-100 17-20 140-161/68-83 94-96 General appearance: over weight - Head Head exam: Present: normocephalic, atraumatic - Eye Eye exam: Present: EOMI Pupils: Present: JAVID - ENT ENT exam: Present: normal exam - Neck Neck exam: Present: normal inspection - Respiratory Respiratory exam: Present: clear to auscultation bilaterally. Absent: rhonchi, wheezes - Cardiovascular Cardiovascular exam: Present: regular rate and rhythm - GI/Abdominal GI/Abdominal exam: Present: normal bowel sounds, soft. Absent: tenderness, rebound - Extremities Exam Extremities exam: Present: normal inspection - Back Exam Back exam: Present: normal inspection - Neurological Exam Neurological exam: Present: alert, oriented X3 - Psychiatric Psychiatric exam: Present: normal affect, normal mood - Skin Skin exam: Present: warm, intact Results - Labs CBC & BMP: 01/13/17 05:42 01/12/17 01:10 Quality Measures - VTE Contraindication to Pharmacological VTE Prophylaxis: High Risk of Bleeding Specialty Discharge - Follow Up or Referrals Follow up with: El Byers III., MD [Physician] -
[2017-01-14] MEDS: amLODIPine 5 MG TABLET PO SCH (11:03)
[2017-01-14] MEDS: ZALEPLON 5 MG CAPSULE PO PRN (23:04)
[2017-01-15] MEDS: metroNIDAZOLE INJ 500 MG in PREMIX 1 EACH IV SCH (01:40)
[2017-01-15] MEDS: CIPROFLOXACIN INJ 400 MG in PREMIX 1 EACH IV SCH (02:50)
[2017-01-15] MEDS ORDERED: BISACODYL 10 MG SUPP RECTAL ONE (07:10)
--- NOTE | 2017-01-15 07:14 | Event Note ---
She feels well. She is not having nausea or vomiting or cramping. She is passing gas but has not had a bowel movement. Her abdomen is benign. She is tolerating a diet. We will give her a regular diet today and a Dulcolax suppository. She may be ready for discharge later today.
[2017-01-15] MEDS: PANTOPRAZOLE 40 MG TABLET PO SCH (08:59)
[2017-01-15] MEDS: amLODIPine 5 MG TABLET PO SCH (09:00)
[2017-01-15] MEDS: LEVOTHYROXINE 75 MCG TABLET PO SCH (09:03)
[2017-01-15] MEDS ORDERED: MAGNESIUM HYDROXIDE SUSP 30 ML UDCUP PO ONE (12:33)
--- NOTE | 2017-01-15 14:51 | Hospitalist Progress Note ---
Assessment and Plan (1) Small bowel obstruction Status: Acute Assessment and plan: Surgery managing Tolerating diet Current Visit: Yes (2) Hypertension Status: Chronic Assessment and plan: Restarted amlodipine Current Visit: Yes Qualifiers: Hypertension type: essential hypertension Qualified Code(s): I10 - Essential (primary) hypertension (3) S/P exploratory laparotomy Status: Acute Current Visit: Yes (4) Hypothyroidism Status: Chronic Assessment and plan: Levothyroxine has been restarted Current Visit: Yes Qualifiers: Hypothyroidism type: acquired Qualified Code(s): E03.9 - Hypothyroidism, unspecified Hospitalist: Subjective Interval history: No acute events overnight. Patient feels much better. Tolerating a regular diet. Denies nausea or vomiting. Seen ambulating around halls. Still no bowel movement Exam - Constitutional Vitals: Period Temp Pulse Resp BP Sys/Rondon Pulse Ox Last 24 Hr 97.2 F-98.7 F 77-97 18-20 130-154/57-70 94-98 General appearance: over weight - Head Head exam: Present: normocephalic, atraumatic - Eye Eye exam: Present: EOMI Pupils: Present: JAVID - ENT ENT exam: Present: normal exam - Neck Neck exam: Present: normal inspection - Respiratory Respiratory exam: Present: clear to auscultation bilaterally. Absent: rhonchi, wheezes - Cardiovascular Cardiovascular exam: Present: regular rate and rhythm - GI/Abdominal GI/Abdominal exam: Present: hypoactive bowel sounds, soft. Absent: tenderness, rebound - Back Exam Back exam: Present: normal inspection - Neurological Exam Neurological exam: Present: alert, oriented X3 - Psychiatric Psychiatric exam: Present: normal affect, normal mood - Skin Skin exam: Present: warm, intact Results - Labs CBC & BMP: 01/13/17 05:42 01/12/17 01:10 Quality Measures - VTE Contraindication to Pharmacological VTE Prophylaxis: High Risk of Bleeding Specialty Discharge - Follow Up or Referrals Follow up with: El Byers III., MD [Physician] -
--- NOTE | 2017-01-16 09:14 | Event Note ---
She feels much better. She has had a small bowel movement. She is not having abdominal pain or nausea or vomiting. Her abdomen is benign. She may be ready for discharge today.
[2017-01-16] MEDS: amLODIPine 5 MG TABLET PO SCH (09:27)
[2017-01-16] MEDS: LEVOTHYROXINE 75 MCG TABLET PO SCH (09:28)
[2017-01-16] MEDS: PANTOPRAZOLE 40 MG TABLET PO SCH (09:29)
[2017-01-16 11:13] VITALS: BP 132/64
--- NOTE | 2017-01-16 13:17 | Hospitalist Progress Note ---
Assessment and Plan - Time spent with patient Time spent with patient: Less than 30 minutes (1) Small bowel obstruction Status: Acute Assessment and plan: s/p lap with lysis of adhesions. Resolved. Current Visit: Yes (2) Hypertension Status: Chronic Assessment and plan: controlled Current Visit: Yes Qualifiers: Hypertension type: essential hypertension Qualified Code(s): I10 - Essential (primary) hypertension (3) Hypothyroidism Status: Chronic Current Visit: Yes Qualifiers: Hypothyroidism type: acquired Qualified Code(s): E03.9 - Hypothyroidism, unspecified Hospitalist: Subjective Interval history: Feels well. +BM. +flatus. Anticipates dc home today Exam - Constitutional Vitals: Period Temp Pulse Resp BP Sys/Rondon Pulse Ox Last 24 Hr 97.6 F-99.7 F 75-96 17-18 129-164/63-82 94-98 General appearance: no acute distress - Head Head exam: Present: normal inspection, normocephalic, atraumatic - Eye Eye exam: Present: EOMI. Absent: conjunctival injection, scleral icterus Pupils: Present: JAVID - ENT ENT exam: Present: normal exam - Neck Neck exam: Present: normal inspection - Respiratory Respiratory exam: Present: clear to auscultation bilaterally. Absent: rales, rhonchi, wheezes - Cardiovascular Cardiovascular exam: Present: regular rate and rhythm. Absent: gallop, rubs - GI/Abdominal GI/Abdominal exam: Present: normal bowel sounds, distended, other (mild distention. good bowel sounds. surgical site CDI) - Extremities Exam Extremities exam: Present: normal inspection, full ROM - Neurological Exam Neurological exam: Present: alert, oriented X3. Absent: motor sensory deficit - Psychiatric Psychiatric exam: Present: normal affect, normal mood - Skin Skin exam: Present: normal color, warm, dry Results - Labs CBC & BMP: 01/13/17 05:42 01/12/17 01:10 Quality Measures - VTE Contraindication to Pharmacological VTE Prophylaxis: High Risk of Bleeding Specialty Discharge - Follow Up or Referrals Follow up with: El Byers III., MD [Physician] -
--- NOTE | 2017-01-16 13:37 | Discharge Summary ---
Hospital Course - Hospital Course Hospital Course: The patient is an 86-year-old female with history of abdominoplasty procedures followed by multiple small bowel obstructions who presented with recurrent SBO. She failed conservative management and ultimately required laparotomy with complete small bowel enteroclysis with extensive adhesions noted. She did require ICU management postoperatively without event. Postoperatively she progressed appropriately advancing her diet and activity. Ultimately, she was tolerating oral intake, voiding, ambulating without difficulty. BM on day of discharge. She was discharged home in good condition. Diagnosis - Discharge Diagnosis (1) Small bowel obstruction Status: Acute (2) Hypertension Status: Chronic (3) Hypothyroidism Status: Chronic Specialty Discharge - Follow Up or Referrals Follow up with: El Byers III., MD [Physician] - Discharge Plan - Discharge Data Disposition: Disch To Home/Self Care Condition at Discharge: Stable Discharge Diet: advance to your usual diet Activity: no lifting (> 5-10 lb) Hygiene: may shower (Do not soak or submerge surgical incision) Driving: not until seen by doctor Contact your physician if you experience:: fever over 101, Difficulty voiding, Redness or swelling, Nausea/Vomiting, Shortness of breath, Bleeding, pain uncontrolled by pain medications Wound / Dressing Care Instructions: Keep surgical incision clean and dry. - Discharge Medications New HYDROcodone/ACETAMIN 7.5-325 [[place] 7.5-325] 1 tablet PO Q4H PRN #30 tablet PRN Reason: Pain Moderate To Severe (4-10) Continue Cholecalciferol (Vitamin D3) [Vitamin D3] 1,000 unit PO DAILY Ondansetron Tab [Zofran Tab] 4 mg PO Q6HR PRN PRN Reason: Nausea Multivit-Min/FA/Lycopen/Lutein [Centrum Silver Tablet] 1 each PO DAILY Cyanocobalamin Tab [Vitamin B12 Tab] 1,000 mcg PO DAILY amLODIPine [Norvasc] 5 mg PO DAILY Simvastatin [Zocor] 40 mg PO DAILY Levothyroxine Tab [Synthroid Tab] 75 mcg PO DAILY Esomeprazole Magnesium [Nexium] 20 mg PO DAILY Ferrous Fumarate [Larisa Sequels] 50 mg PO QOTHER DAY - Follow Up or Referral Follow Up: El Byers III., MD [Physician] - 1 Week - Forms/Instructions Instructions: Exploratory Laparotomy (DC) Exam - Constitutional Vitals: Period Temp Pulse Resp BP Sys/Rondon Pulse Ox Last 24 Hr 97.6 F-99.7 F 75-96 17-18 129-164/63-82 94-98 General appearance: no acute distress - Head Head exam: Present: normal inspection, normocephalic - Eye Eye exam: Absent: conjunctival injection, scleral icterus - Respiratory Respiratory exam: Present: clear to auscultation bilaterally - Cardiovascular Cardiovascular exam: Present: regular rate and rhythm - GI/Abdominal GI/Abdominal exam: Present: normal bowel sounds, tenderness (Appropriate postop tenderness. Surgical incision is clean, dry and intact with newton intact.), soft. Absent: distended - Neurological Exam Neurological exam: Present: alert, oriented X3 - Psychiatric Psychiatric exam: Present: normal affect, normal mood - Skin Skin exam: Present: normal color, warm Discharge Results Procedures and tests throughout hospitalization: Laparotomy with small bowel enteroclysis Labs on day of discharge: External records reviewed - Imaging and Cardiology Procedure: CT Abdomen and Pelvis: image reviewed by me, report reviewed by me DS: Provider Date of admission: 01/08/17 01:42 Primary care physician: . No PCP Attending physician on admission: El Byers III., Consults: 01/10/17 13:18 Consult to Physician [CONS] Routine Comment: Consulting Provider: Bran Mchugh Consulting Provider Notified: Yes Consult to Specialist Group: Hospitalist Person Notified: Date Notified: 01/10/17 Time Notified: 14:30 01/16/17 13:01 Consult to Case Mgmt/Social Srvs [CONS] Routine Reason for Case Mgmt/Social Srvs: Equipment Discharge Planning Consult Comment: Del to Rm 340 today a Rolling Walker w/2 wheels on front f/ home Discharging clinician: Dorota Mccoy PA-C
== END 2017-01-16 15:00 | disposition home or self-care (01) | DRG 337 ==
LOC: EDBD → EDUNIT# → N.ED 01:02 → N.EDINP 01:42 → N.3E 02:03 → N.ICU 01-10 13:59 → N.3E 01-11 16:48
PROVIDERS: ADMIT Surgery; ATTEND Surgery

== ENCOUNTER 2017-01-22 14:41 | Inpatient (IN) ==
[2017-01-22] MEDS ORDERED: MORPHINE 2 MG/1 ML SYRINGE IV PRN (16:08)
[2017-01-22] MEDS ORDERED: ONDANSETRON 4 MG/2 ML VIAL IV PRN (16:08)
[2017-01-22] MEDS: DEXT 5% NACL 0.45% KCL 20 MEQ 20 MEQ/1,000 ML BAG IV SCH (16:39)
[2017-01-22 18:07] LABS: Basophils % 0.3 % (0.0-0.8); Eosinophils # 0.4 10*3/uL (0.0-0.87); Eosinophils % 3.9 % (0.00-10.9); Hematocrit 36.1 VOL% (35.7-47.0); Hemoglobin 12.1 GM/DL (12.0-16.0); Immature Granulocytes % 0.8 %; Immature Granulocytes Absolute 0.08 #; Lymphocytes # 1.1 10*3/uL (1.4-4.0); Mean Corpuscular HGB Conc 33.5 GM/DL (32-36); Mean Corpuscular Hemoglobin 31 PG (27-34); Mean Corpuscular Volume 93.5 FL (87-102); Mean Platelet Volume 10.5 FL (9.6-12.0); Monocytes # 1.1 10*3/uL (0.11-0.8); Monocytes % 11.4 % (1.7-12.7); Neutrophils # 6.9 10*3/uL (1.4-7.4); Neutrophils % 72.6 % (38.7-73.9); Platelet Count 346 T/CUMM (130-400); Red Blood Count 3.86 MC/CUMM (3.8-5.5); Red Cell Distribution Width 13.8 % (9.3-17.3); White Blood Count 9.6 T/CUMM (4-12)
[2017-01-22 18:26] LABS: Calcium 8.1 MG/DL (8.5-10.1); Osmolality,Calculated 272.8 MOS/KG (273-304); Potassium 4.1 MMOL/L (3.5-5.1)
[2017-01-23] MEDS: DEXT 5% NACL 0.45% KCL 20 MEQ 20 MEQ/1,000 ML BAG IV SCH ×3 (00:47→18:05)
[2017-01-23] MEDS ORDERED: ONDANSETRON 4 MG TABLET PO PRN (11:52)
[2017-01-23] MEDS: PANTOPRAZOLE 40 MG TABLET PO SCH (13:43)
--- NOTE | 2017-01-23 14:37 | Event Note ---
Afebrile vital signs stable. Patient is feeling much better today. She has no nausea or vomiting and her discomfort is improved. She reports flatus but no bowel movement. She was started on clears and seems to be tolerating it well at this point with no nausea or vomiting. Her abdomen is soft nondistended and her tenderness is much improved. Lab work is okay. Will continue clear liquids for today and possibly advance diet tomorrow.
[2017-01-24] MEDS: DEXT 5% NACL 0.45% KCL 20 MEQ 20 MEQ/1,000 ML BAG IV SCH (01:00)
[2017-01-24] MEDS ORDERED: SIMVASTATIN 40 MG TABLET PO SCH (09:00)
[2017-01-24] MEDS ORDERED: LEVOTHYROXINE 75 MCG TABLET PO SCH (09:00)
[2017-01-24] MEDS ORDERED: amLODIPine 5 MG TABLET PO SCH (09:00)
[2017-01-24] MEDS: PANTOPRAZOLE 40 MG TABLET PO SCH (09:56)
[2017-01-24 11:46] VITALS: BP 148/69
--- NOTE | 2017-01-24 14:29 | Discharge Summary ---
Hospital Course - Hospital Course Hospital Course: Patient is an 86-year-old female who presented on postop day #12 status post enteroclysis procedure for small bowel obstruction with signs and symptoms of recurrent obstruction versus ileus. She was admitted for observation. She was initially treated with bowel rest, IV hydration, analgesics mobility. She ultimately was passing her bowels without complication with significant improvement in her abdominal distention and pain. She is tolerating regular diet upon discharge. Surgical incision was well-healed and newton removed on the day of discharge at 14 days postop. Patient was discharged home in good condition with 1 week follow-up with Dr. Byers. Diagnosis - Discharge Diagnosis (1) Ileus, postoperative Status: Acute Discharge Plan - Discharge Data Disposition: Disch To Home/Self Care Condition at Discharge: Stable Discharge Diet: advance to your usual diet Activity: no lifting (> 10 lb) Hygiene: may shower Contact your physician if you experience:: fever over 101, Difficulty voiding, Redness or swelling, Nausea/Vomiting, Shortness of breath, Bleeding, pain uncontrolled by pain medications Wound / Dressing Care Instructions: No wound care required. - Discharge Medications Continue Cholecalciferol (Vitamin D3) [Vitamin D3] 5,000 unit PO DAILY Ondansetron Tab [Zofran Tab] 4 mg PO Q6HR PRN PRN Reason: Nausea Multivit-Min/FA/Lycopen/Lutein [Centrum Silver Tablet] 1 each PO DAILY Cyanocobalamin Tab [Vitamin B12 Tab] 1,000 mcg PO DAILY amLODIPine [Norvasc] 5 mg PO DAILY Simvastatin [Zocor] 40 mg PO DAILY Levothyroxine Tab [Synthroid Tab] 75 mcg PO DAILY Ferrous Fumarate [Larisa Sequels] 50 mg PO MOFR Omeprazole 20 mg PO DAILY - Follow Up or Referral Follow Up: El Byers III., MD [Physician] - 1 Week - Forms/Instructions Instructions: Ileus (DC) Exam - Constitutional Vitals: Period Temp Pulse Resp BP Sys/Rondon Pulse Ox Last 24 Hr 96.4 F-97.7 F 74-78 18-20 119-157/68-71 95-99 General appearance: no acute distress - Eye Eye exam: Absent: conjunctival injection, scleral icterus - Respiratory Respiratory exam: Present: clear to auscultation bilaterally - Cardiovascular Cardiovascular exam: Present: regular rate and rhythm - GI/Abdominal GI/Abdominal exam: Present: normal bowel sounds, soft. Absent: distended, tenderness - Extremities Exam Extremities exam: Absent: calf tenderness, edema - Neurological Exam Neurological exam: Present: alert, oriented X3 - Psychiatric Psychiatric exam: Present: normal affect, normal mood - Skin Skin exam: Present: normal color, warm DS: Provider Date of admission: 01/23/17 14:33 Primary care physician: . No PCP Attending physician on admission: Fransisco Thomas MD Consults: 01/22/17 16:26 Consult to Dietitian [CONS] Routine Reason for Dietitian: Dietary Consult Consult to Pastoral Services [CONS] Routine Comment: Pastoral Screen: Request Water Leak Repairer Visit Pastoral Screen Source of Request: Patient Discharging clinician: Dorota Mccoy PA-C
[2017-01-25] MEDS ORDERED: FERROUS FUMARATE 50 MG TABLET PO SCH (09:00)
== END 2017-01-24 15:20 | disposition home or self-care (01) | DRG 395 ==
LOC: N.3E
PROVIDERS: ADMIT Surgery; ATTEND Surgery

== ENCOUNTER 2017-11-06 02:46 | Inpatient (IN) ==
[2017-11-06] MEDS ORDERED: ONDANSETRON 4 MG/2 ML VIAL IV STA (04:23)
[2017-11-06] MEDS ORDERED: MORPHINE 2 MG/1 ML SYRINGE IV STA (04:23)
[2017-11-06] MEDS ORDERED: ONDANSETRON 4 MG/2 ML VIAL IV PRN (04:23)
[2017-11-06] MEDS ORDERED: ONDANSETRON 4 MG/2 ML VIAL ONE (04:25)
[2017-11-06] MEDS ORDERED: MORPHINE 10 MG/1 ML VIAL ONE (04:26)
[2017-11-06] MEDS: DEXTROSE 5% LACTATED RINGERS 1,000 ML IV SCH ×3 (05:39→23:20)
[2017-11-06] MEDS: PANTOPRAZOLE 40 MG TABLET PO SCH (11:18)
[2017-11-06 15:31] LABS: Apearance,Urine CLEAR (Clear); Bilirubin,Urine Negative (Negative); Blood, Urine Negative (Negative); Glucose,Urine (UA) Negative (Negative); Ketones,Urine Negative (Negative); Mucus,Urine Occasional /LPF (Occasional); Nitrite,Urine Negative (Negative); Protein,Urine Negative; RBC,Urine <1 /HPF (0-4); Squamous Epithelial Cell,Urine Occasional /HPF (0-10); Urine Color Yellow (Yellow); Urine Specific Gravity 1.018 (1.001-1.035); Urine Urobilinogen < 2.0 EU/DL (0.2-1.0); WBC,Urine 2 /HPF (0-6)
[2017-11-07 05:14] LABS: Basophils % 0.2 % (0.0-0.8); Eosinophils # 0.4 10*3/uL (0.0-0.87); Eosinophils % 6.7 % (0.00-10.9); Hematocrit 36.6 VOL% (35.7-47.0); Hemoglobin 12.4 GM/DL (12.0-16.0); Immature Granulocytes % 0.4 %; Immature Granulocytes Absolute 0.02 #; Lymphocytes # 1.2 10*3/uL (1.4-4.0); Lymphocytes % 22.2 % (21.3-54.2); Mean Corpuscular HGB Conc 33.9 GM/DL (32-36); Mean Corpuscular Hemoglobin 32 PG (27-34); Mean Corpuscular Volume 93.6 FL (87-102); Mean Platelet Volume 10.6 FL (9.6-12.0); Monocytes # 0.6 10*3/uL (0.11-0.8); Monocytes % 12.2 % (1.7-12.7); Neutrophils # 3.1 10*3/uL (1.4-7.4); Neutrophils % 58.3 % (38.7-73.9); Platelet Count 209 T/CUMM (130-400); Red Blood Count 3.91 MC/CUMM (3.8-5.5); Red Cell Distribution Width 13.2 % (9.3-17.3); White Blood Count 5.2 T/CUMM (4-12)
[2017-11-07 05:49] LABS: Potassium 4.3 MMOL/L (3.5-5.1)
[2017-11-07] MEDS: LEVOTHYROXINE 75 MCG TABLET PO SCH (06:16)
[2017-11-07] MEDS: DEXTROSE 5% LACTATED RINGERS 1,000 ML IV SCH ×2 (06:39→16:03)
[2017-11-07] MEDS: amLODIPine 5 MG TABLET PO SCH (08:42)
[2017-11-07] MEDS: SIMVASTATIN 40 MG TABLET PO SCH (08:43)
[2017-11-07] MEDS: PANTOPRAZOLE 40 MG TABLET PO SCH (08:43)
[2017-11-08] MEDS: LEVOTHYROXINE 75 MCG TABLET PO SCH (06:36)
[2017-11-08] MEDS: amLODIPine 5 MG TABLET PO SCH (09:10)
[2017-11-08] MEDS: SIMVASTATIN 40 MG TABLET PO SCH (09:10)
[2017-11-08] MEDS: PANTOPRAZOLE 40 MG TABLET PO SCH (09:10)
[2017-11-08] MEDS: DEXTROSE 5% LACTATED RINGERS 1,000 ML IV SCH (09:11)
[2017-11-08 12:24] VITALS: BP 134/63
== END 2017-11-08 13:45 | disposition home or self-care (01) | DRG 390 ==
LOC: EDUNIT# → EDBD → N.ED 02:46 → N.EDINP 04:23 → N.3E 06:17
PROVIDERS: ADMIT Surgery; ATTEND Surgery

== ENCOUNTER 2018-05-28 23:45 | Inpatient (IN) ==
[2018-05-29] MEDS ORDERED: INFLUENZA VIRUS VACCINE 0.5 ML SYRINGE IM ONE (01:47)
[2018-05-29] MEDS ORDERED: PROMETHAZINE 25 MG/1 ML VIAL IM PRN (02:21)
[2018-05-29] MEDS ORDERED: ONDANSETRON 4 MG/2 ML VIAL IV PRN (02:21)
[2018-05-29] MEDS ORDERED: SODIUM POLYSTYRENE SULFATE 15 GM/60 ML BOTTLE PO STA (02:21)
[2018-05-29] MEDS ORDERED: MORPHINE 4 MG/1 ML VIAL IV PRN (02:21)
[2018-05-29] MEDS: SODIUM CHLORIDE 0.9% 1,000 ML IV SCH ×3 (03:05→17:48)
[2018-05-29] MEDS: metroNIDAZOLE INJ 500 MG in PREMIX 1 EACH IV SCH ×2 (03:05→14:58)
[2018-05-29 05:04] LABS: Basophils % 0.3 % (0.0-0.8); Eosinophils # 0.1 10*3/uL (0.0-0.87); Eosinophils % 0.9 % (0.00-10.9); Hemoglobin 13.8 GM/DL (12.0-16.0); Immature Granulocytes % 0.4 %; Immature Granulocytes Absolute 0.04 #; Lymphocytes # 1.3 10*3/uL (1.4-4.0); Lymphocytes % 13.8 % (21.3-54.2); Mean Corpuscular HGB Conc 32.9 GM/DL (32-36); Mean Corpuscular Hemoglobin 31 PG (27-34); Mean Corpuscular Volume 95.2 FL (87-102); Mean Platelet Volume 10.2 FL (9.6-12.0); Monocytes % 10.1 % (1.7-12.7); Neutrophils # 7.2 10*3/uL (1.4-7.4); Neutrophils % 74.5 % (38.7-73.9); Platelet Count 239 T/CUMM (130-400); Red Blood Count 4.41 MC/CUMM (3.8-5.5); Red Cell Distribution Width 13.3 % (9.3-17.3); White Blood Count 9.7 T/CUMM (4-12)
[2018-05-29] MEDS: LEVOFLOXACIN INJ 500 MG in PREMIX 1 EACH IV SCH (05:17)
[2018-05-29 05:33] LABS: Lactic Acid 1.2 MMOL/L (0.4-2.0)
[2018-05-29 05:53] LABS: Albumin 3.5 G/DL (3.4-5.0); Bilirubin,Total 0.7 MG/DL (0.2-1.0); Calcium 8.1 MG/DL (8.5-10.1); Osmolality,Calculated 280.4 MOS/KG (273-304); Potassium 4.1 MMOL/L (3.5-5.1); Total Protein 7.3 G/DL (6.4-8.3)
[2018-05-29 07:17] LABS: Apearance,Urine CLEAR (Clear); Bilirubin,Urine Negative (Negative); Blood, Urine Negative (Negative); Glucose,Urine (UA) Negative (Negative); Ketones,Urine Negative (Negative); Nitrite,Urine Negative (Negative); Protein,Urine Negative; RBC,Urine <1 /HPF (0-4); Squamous Epithelial Cell,Urine Occasional /HPF (0-10); Urine Color Yellow (Yellow); Urine Specific Gravity 1.011 (1.001-1.035); Urine Urobilinogen < 2.0 EU/DL (0.2-1.0)
[2018-05-29] MEDS: PANTOPRAZOLE 40 MG VIAL IV SCH ×2 (09:02→20:44)
[2018-05-29] MEDS ORDERED: hydrALAZINE 20 MG/1 ML VIAL IV PRN (11:20)
[2018-05-29] MEDS: LEVOTHYROXINE 100 MCG VIAL IV SCH (12:07)
[2018-05-30] MEDS: metroNIDAZOLE INJ 500 MG in PREMIX 1 EACH IV SCH ×2 (01:54→14:44)
[2018-05-30] MEDS: SODIUM CHLORIDE 0.9% 1,000 ML IV SCH ×2 (01:55→14:44)
[2018-05-30] MEDS: LEVOFLOXACIN INJ 500 MG in PREMIX 1 EACH IV SCH (04:23)
[2018-05-30 05:04] LABS: Basophils % 0.6 % (0.0-0.8); Eosinophils # 0.3 10*3/uL (0.0-0.87); Eosinophils % 4.8 % (0.00-10.9); Hematocrit 39.7 VOL% (35.7-47.0); Hemoglobin 12.8 GM/DL (12.0-16.0); Immature Granulocytes % 0.5 %; Immature Granulocytes Absolute 0.03 #; Lymphocytes # 0.8 10*3/uL (1.4-4.0); Lymphocytes % 12.7 % (21.3-54.2); Mean Corpuscular HGB Conc 32.2 GM/DL (32-36); Mean Corpuscular Hemoglobin 31 PG (27-34); Mean Corpuscular Volume 96.1 FL (87-102); Mean Platelet Volume 10.2 FL (9.6-12.0); Monocytes # 0.7 10*3/uL (0.11-0.8); Neutrophils # 4.7 10*3/uL (1.4-7.4); Neutrophils % 70.4 % (38.7-73.9); Platelet Count 200 T/CUMM (130-400); Red Blood Count 4.13 MC/CUMM (3.8-5.5); Red Cell Distribution Width 13.3 % (9.3-17.3); White Blood Count 6.6 T/CUMM (4-12)
[2018-05-30 05:39] LABS: Potassium 4.5 MMOL/L (3.5-5.1)
[2018-05-30] MEDS: LEVOTHYROXINE 100 MCG VIAL IV SCH (06:11)
[2018-05-30] MEDS: PANTOPRAZOLE 40 MG VIAL IV SCH ×2 (08:26→20:55)
[2018-05-31] MEDS: metroNIDAZOLE INJ 500 MG in PREMIX 1 EACH IV SCH (01:45)
[2018-05-31] MEDS: SODIUM CHLORIDE 0.9% 1,000 ML IV SCH ×2 (02:58→02:59)
[2018-05-31] MEDS: LEVOFLOXACIN INJ 500 MG in PREMIX 1 EACH IV SCH (03:52)
[2018-05-31 04:28] LABS: Basophils % 0.8 % (0.0-0.8); Eosinophils # 0.5 10*3/uL (0.0-0.87); Hemoglobin 11.7 GM/DL (12.0-16.0); Immature Granulocytes % 0.6 %; Immature Granulocytes Absolute 0.03 #; Lymphocytes # 0.8 10*3/uL (1.4-4.0); Lymphocytes % 16.5 % (21.3-54.2); Mean Corpuscular HGB Conc 33.4 GM/DL (32-36); Mean Corpuscular Hemoglobin 32 PG (27-34); Mean Corpuscular Volume 94.1 FL (87-102); Mean Platelet Volume 10.1 FL (9.6-12.0); Monocytes # 0.7 10*3/uL (0.11-0.8); Monocytes % 13.3 % (1.7-12.7); Neutrophils # 3.1 10*3/uL (1.4-7.4); Neutrophils % 59.8 % (38.7-73.9); Platelet Count 207 T/CUMM (130-400); Red Blood Count 3.72 MC/CUMM (3.8-5.5); Red Cell Distribution Width 13.4 % (9.3-17.3); White Blood Count 5.1 T/CUMM (4-12)
[2018-05-31 04:47] LABS: Calcium 7.5 MG/DL (8.5-10.1); Osmolality,Calculated 284.8 MOS/KG (273-304); Potassium 3.5 MMOL/L (3.5-5.1)
[2018-05-31] MEDS: LEVOTHYROXINE 100 MCG VIAL IV SCH (06:25)
[2018-05-31 08:09] VITALS: BP 148/70
[2018-05-31] MEDS: PANTOPRAZOLE 40 MG VIAL IV SCH (09:07)
== END 2018-05-31 11:03 | disposition home or self-care (01) | DRG 390 ==
LOC: N.3E 05-29 01:16 → SUATTDRO 05-29 01:16
PROVIDERS: ADMIT Internal Medicine

== ENCOUNTER 2018-11-01 10:17 | Inpatient (IN) ==
[2018-11-01 11:02] LABS: Basophils % 0.4 % (0.0-0.8); Eosinophils # 0.1 10*3/uL (0.0-0.87); Eosinophils % 1.2 % (0.00-10.9); Hematocrit 46.3 VOL% (35.7-47.0); Hemoglobin 15.2 GM/DL (12.0-16.0); Immature Granulocytes % 0.5 %; Immature Granulocytes Absolute 0.05 #; Lymphocytes # 1.4 10*3/uL (1.4-4.0); Lymphocytes % 13.8 % (21.3-54.2); Mean Corpuscular HGB Conc 32.8 GM/DL (32-36); Mean Corpuscular Hemoglobin 31 PG (27-34); Mean Corpuscular Volume 94.3 FL (87-102); Mean Platelet Volume 10.4 FL (9.6-12.0); Monocytes % 9.7 % (1.7-12.7); Neutrophils # 7.7 10*3/uL (1.4-7.4); Neutrophils % 74.4 % (38.7-73.9); Platelet Count 240 T/CUMM (130-400); Red Blood Count 4.91 MC/CUMM (3.8-5.5); Red Cell Distribution Width 13.2 % (9.3-17.3); White Blood Count 10.4 T/CUMM (4-12)
[2018-11-01 11:36] LABS: Bilirubin,Total 0.5 MG/DL (0.2-1.0); Calcium 8.5 MG/DL (8.5-10.1); Osmolality,Calculated 275.7 MOS/KG (273-304); Total Protein 7.7 G/DL (6.4-8.3)
[2018-11-01 11:55] LABS: Apearance,Urine CLEAR (Clear); Bacteria,Urine Occasional /HPF (Few); Bilirubin,Urine Negative (Negative); Blood, Urine Negative (Negative); Glucose,Urine (UA) Negative (Negative); Ketones,Urine Negative (Negative); Mucus,Urine Occasional /LPF (Occasional); Nitrite,Urine Negative (Negative); Protein,Urine Negative; RBC,Urine 1 /HPF (0-4); Squamous Epithelial Cell,Urine Occasional /HPF (0-10); Urine Color Yellow (Yellow); Urine Specific Gravity 1.017 (1.001-1.035); Urine Urobilinogen < 2.0 EU/DL (0.2-1.0); WBC,Urine 1 /HPF (0-6)
[2018-11-01] MEDS ORDERED: SODIUM CHLORIDE 0.9% 1,000 ML IV STA (12:23)
[2018-11-01] MEDS ORDERED: ONDANSETRON 4 MG/2 ML VIAL IV STA (12:23)
[2018-11-01] MEDS ORDERED: KETOROLAC 30 MG/1 ML VIAL IM STA (12:28)
[2018-11-01] MEDS ORDERED: KETOROLAC 30 MG/1 ML VIAL ONE (12:28)
[2018-11-01] MEDS ORDERED: ONDANSETRON 4 MG/2 ML VIAL IV PRN (15:21)
[2018-11-01] MEDS ORDERED: MORPHINE 4 MG/1 ML VIAL IV PRN (15:21)
[2018-11-01] MEDS ORDERED: ACETAMINOPHEN 325 MG TABLET PO PRN (15:21)
[2018-11-01] MEDS: DEXTROSE 5% LACTATED RINGERS 1,000 ML IV SCH (17:31)
[2018-11-02] MEDS: DEXTROSE 5% LACTATED RINGERS 1,000 ML IV SCH ×3 (00:41→16:07)
[2018-11-02 05:00] LABS: Basophils % 0.4 % (0.0-0.8); Eosinophils # 0.3 10*3/uL (0.0-0.87); Eosinophils % 4.8 % (0.00-10.9); Hematocrit 36.6 VOL% (35.7-47.0); Hemoglobin 11.9 GM/DL (12.0-16.0); Immature Granulocytes % 0.4 %; Immature Granulocytes Absolute 0.02 #; Lymphocytes # 1.2 10*3/uL (1.4-4.0); Lymphocytes % 22.4 % (21.3-54.2); Mean Corpuscular HGB Conc 32.5 GM/DL (32-36); Mean Corpuscular Hemoglobin 31 PG (27-34); Mean Corpuscular Volume 95.1 FL (87-102); Monocytes # 0.7 10*3/uL (0.11-0.8); Monocytes % 13.3 % (1.7-12.7); Neutrophils # 3.1 10*3/uL (1.4-7.4); Neutrophils % 58.7 % (38.7-73.9); Platelet Count 179 T/CUMM (130-400); Red Blood Count 3.85 MC/CUMM (3.8-5.5); Red Cell Distribution Width 13.2 % (9.3-17.3); White Blood Count 5.3 T/CUMM (4-12)
[2018-11-02 05:30] LABS: Calcium 7.6 MG/DL (8.5-10.1); Potassium 3.7 MMOL/L (3.5-5.1)
[2018-11-02] MEDS: PANTOPRAZOLE 40 MG TABLET PO SCH (08:20)
[2018-11-02] MEDS: ENOXAPARIN 40 MG/0.4 ML SYRINGE SUBCUT SCH (09:17)
[2018-11-03] MEDS: DEXTROSE 5% LACTATED RINGERS 1,000 ML IV SCH ×3 (01:12→18:25)
[2018-11-03] MEDS: PANTOPRAZOLE 40 MG TABLET PO SCH (09:34)
[2018-11-03] MEDS: ENOXAPARIN 40 MG/0.4 ML SYRINGE SUBCUT SCH (09:35)
[2018-11-04] MEDS: DEXTROSE 5% LACTATED RINGERS 1,000 ML IV SCH (03:22)
[2018-11-04 07:28] VITALS: BP 162/67
[2018-11-04] MEDS ORDERED: CHOLECALCIFEROL 1,000 UNIT TABLET PO SCH (09:00)
[2018-11-04] MEDS ORDERED: amLODIPine 5 MG TABLET PO SCH (09:00)
[2018-11-04] MEDS ORDERED: SIMVASTATIN 40 MG TABLET PO SCH (09:00)
[2018-11-04] MEDS ORDERED: DOCUSATE SODIUM 100 MG CAPSULE PO SCH (09:00)
[2018-11-04] MEDS ORDERED: Omeprazole [Omeprazole] 20 MG PO SCH (09:00)
[2018-11-04] MEDS ORDERED: CYANOCOBALAMIN 500 MCG TABLET PO SCH (09:00)
[2018-11-04] MEDS ORDERED: MULTIVITAMIN (CENTRUM) TABLET PO SCH (09:00)
[2018-11-04] MEDS ORDERED: LEVOTHYROXINE 75 MCG TABLET PO SCH (09:00)
[2018-11-04] MEDS: PANTOPRAZOLE 40 MG TABLET PO SCH (09:30)
[2018-11-04] MEDS: ENOXAPARIN 40 MG/0.4 ML SYRINGE SUBCUT SCH (10:20)
[2018-11-06] MEDS ORDERED: FERROUS FUMARATE 50 MG PO SCH (09:00)
== END 2018-11-04 11:53 | disposition home or self-care (01) | DRG 390 ==
LOC: N.ED 10:17 → N.EDINP 15:21 → N.3E 17:10
PROVIDERS: ADMIT Surgery; ATTEND Surgery

== ENCOUNTER 2019-04-08 17:41 | Inpatient (IN) ==
[2019-04-08] MEDS ORDERED: ONDANSETRON 4 MG/2 ML VIAL ONE (18:08)
[2019-04-08] MEDS ORDERED: ONDANSETRON 4 MG/2 ML VIAL IV STA (18:19)
[2019-04-08] MEDS ORDERED: MORPHINE 4 MG/1 ML VIAL IV STA (18:29)
[2019-04-08] MEDS ORDERED: ONDANSETRON 4 MG/2 ML VIAL IV PRN ×2 (18:35)
[2019-04-08] MEDS ORDERED: MORPHINE 4 MG/1 ML VIAL IV PRN (18:35)
[2019-04-08] MEDS: DEXTROSE 5% LACTATED RINGERS 1,000 ML IV SCH (21:45)
[2019-04-09 07:32] LABS: Basophils % 0.4 % (0.0-0.8); Eosinophils # 0.2 10*3/uL (0.0-0.87); Eosinophils % 2.3 % (0.00-10.9); Hematocrit 40.2 VOL% (35.7-47.0); Hemoglobin 13.2 GM/DL (12.0-16.0); Immature Granulocytes % 0.5 %; Immature Granulocytes Absolute 0.04 #; Lymphocytes # 1.4 10*3/uL (1.4-4.0); Mean Corpuscular HGB Conc 32.8 GM/DL (32-36); Mean Corpuscular Volume 93.5 FL (87-102); Mean Platelet Volume 10.3 FL (9.6-12.0); Monocytes % 15.8 % (1.7-12.7); Platelet Count 252 T/CUMM (130-400); Red Cell Distribution Width 13.2 % (9.3-17.3); White Blood Count 7.9 T/CUMM (4-12)
[2019-04-09 07:50] LABS: Calcium 8.5 MG/DL (8.5-10.1); Osmolality,Calculated 282.3 MOS/KG (273-304)
[2019-04-09 07:57] LABS: Band Neutrophils 6 % (0-10); Hypochromasia 1+; Lymphocytes 14 % (20-55); Platelet Estimate Adequate; Segmented Neutrophils 69 % (50-85); Total Cells Counted 100
[2019-04-09] MEDS: FAMOTIDINE 20 MG/2 ML VIAL IV SCH (09:13)
[2019-04-09] MEDS: DEXTROSE 5% LACTATED RINGERS 1,000 ML IV SCH ×3 (11:00→21:09)
[2019-04-09] MEDS ORDERED: ACETAMINOPHEN 325 MG TABLET PO PRN (20:08)
[2019-04-10] MEDS: DEXTROSE 5% LACTATED RINGERS 1,000 ML IV SCH ×4 (01:38→18:40)
[2019-04-10] MEDS: FAMOTIDINE 20 MG/2 ML VIAL IV SCH (09:40)
[2019-04-11] MEDS: DEXTROSE 5% LACTATED RINGERS 1,000 ML IV SCH ×2 (03:38→12:01)
[2019-04-11 08:15] VITALS: BP 136/72
[2019-04-11] MEDS: FAMOTIDINE 20 MG/2 ML VIAL IV SCH (08:43)
== END 2019-04-11 11:20 | disposition home or self-care (01) | DRG 389 ==
LOC: EDUNIT# → EDBD → N.ED 17:41 → N.EDINP 18:35 → N.3E 19:04
PROVIDERS: ADMIT Surgery; ATTEND Surgery

== ENCOUNTER 2019-08-23 11:48 | Inpatient (IN) ==
[2019-08-23] MEDS ORDERED: HYDROmorphone 2 MG/1 ML VIAL IV STA (13:38)
[2019-08-23] MEDS ORDERED: SODIUM CHLORIDE 0.9% 1,000 ML IV STA (13:38)
[2019-08-23] MEDS ORDERED: ONDANSETRON 4 MG/2 ML VIAL IV STA (13:38)
[2019-08-23 15:07] LABS: Basophils % 0.3 % (0.0-0.8); Eosinophils # 0.1 10*3/uL (0.0-0.87); Eosinophils % 0.7 % (0.00-10.9); Hematocrit 45.7 VOL% (35.7-47.0); Hemoglobin 15.6 GM/DL (12.0-16.0); Immature Granulocytes % 0.7 %; Immature Granulocytes Absolute 0.08 #; Lymphocytes # 1.3 10*3/uL (1.4-4.0); Lymphocytes % 10.8 % (21.3-54.2); Mean Corpuscular HGB Conc 34.1 GM/DL (32-36); Mean Corpuscular Volume 90.7 FL (87-102); Mean Platelet Volume 10.2 FL (9.6-12.0); Monocytes % 7.8 % (1.7-12.7); Neutrophils % 79.7 % (38.7-73.9); Platelet Count 194 T/CUMM (130-400); Red Blood Count 5.04 MC/CUMM (3.8-5.5); Red Cell Distribution Width 13.5 % (9.3-17.3); White Blood Count 12.3 T/CUMM (4-12)
[2019-08-23 15:08] LABS: Bacteria,Urine Occasional /HPF (Few); Bilirubin,Urine Negative (Negative); Blood, Urine NEGATIVE (Negative); Glucose,Urine (UA) Negative (Negative); Ketones,Urine Negative (Negative); Mucus,Urine Occasional /LPF (Occasional); Nitrite,Urine Negative (Negative); Protein,Urine Negative; RBC,Urine <1 /HPF (0-4); Squamous Epithelial Cell,Urine Occasional /HPF (0-10); Urine Color Yellow (Yellow); WBC,Urine 2 /HPF (0-6)
[2019-08-23 15:09] LABS: Apearance,Urine CLEAR (Clear); Urine Urobilinogen 0.2 EU/DL (0.2-1.0)
[2019-08-23 15:12] LABS: Platelet Estimate Adequate
[2019-08-23 15:22] LABS: Bilirubin,Total 0.5 MG/DL (0.2-1.0); Calcium 9.4 MG/DL (8.5-10.1); Osmolality,Calculated 267.2 MOS/KG (273-304); Total Protein 8.3 G/DL (6.4-8.3)
[2019-08-23] MEDS ORDERED: HYDROmorphone 2 MG/1 ML VIAL IV PRN (16:03)
[2019-08-23] MEDS: DEXTROSE 5% NACL 0.45% 1,000 ML IV SCH (18:38)
[2019-08-23] MEDS: MONTELUKAST 10 MG TABLET PO SCH (20:24)
[2019-08-23] MEDS: ONDANSETRON 4 MG/2 ML VIAL IV PRN (20:25)
[2019-08-24] MEDS: ONDANSETRON 4 MG/2 ML VIAL IV PRN ×2 (02:30→12:52)
[2019-08-24] MEDS: DEXTROSE 5% NACL 0.45% 1,000 ML IV SCH ×3 (02:49→21:01)
[2019-08-24 05:44] LABS: Calcium 8.5 MG/DL (8.5-10.1); Osmolality,Calculated 265.5 MOS/KG (273-304)
[2019-08-24] MEDS: LEVOTHYROXINE 75 MCG TABLET PO SCH (06:29)
[2019-08-24] MEDS ORDERED: ENOXAPARIN 30 MG/0.3 ML SYRINGE SUBCUT SCH (10:05)
[2019-08-24] MEDS: PANTOPRAZOLE 40 MG VIAL IV SCH (12:52)
[2019-08-24] MEDS: amLODIPine 5 MG TABLET PO SCH (13:57)
[2019-08-24] MEDS: CYANOCOBALAMIN 500 MCG TABLET PO SCH (13:57)
[2019-08-24] MEDS: MONTELUKAST 10 MG TABLET PO SCH (20:03)
[2019-08-25] MEDS: DEXTROSE 5% NACL 0.45% 1,000 ML IV SCH (05:35)
[2019-08-25] MEDS: LEVOTHYROXINE 75 MCG TABLET PO SCH (06:10)
[2019-08-25] MEDS: PANTOPRAZOLE 40 MG VIAL IV SCH (09:00)
[2019-08-25] MEDS: ENOXAPARIN 40 MG/0.4 ML SYRINGE SUBCUT SCH (09:00)
[2019-08-25] MEDS: CYANOCOBALAMIN 500 MCG TABLET PO SCH (09:09)
[2019-08-25] MEDS: amLODIPine 5 MG TABLET PO SCH (09:09)
[2019-08-25] MEDS ORDERED: DEXTROSE 5% NACL 0.45% 1,000 ML IV SCH (13:00)
[2019-08-25] MEDS: MONTELUKAST 10 MG TABLET PO SCH (21:41)
[2019-08-26] MEDS: LEVOTHYROXINE 75 MCG TABLET PO SCH (05:55)
[2019-08-26] MEDS: ENOXAPARIN 40 MG/0.4 ML SYRINGE SUBCUT SCH (09:23)
[2019-08-26] MEDS: PANTOPRAZOLE 40 MG VIAL IV SCH (09:24)
[2019-08-26] MEDS: CYANOCOBALAMIN 500 MCG TABLET PO SCH (09:25)
[2019-08-26] MEDS: amLODIPine 5 MG TABLET PO SCH (09:25)
[2019-08-26 11:18] VITALS: BP 137/57
== END 2019-08-26 11:20 | disposition home or self-care (01) | DRG 390 ==
LOC: N.ED 11:48 → N.EDINP 16:03 → N.2E 17:15
PROVIDERS: ADMIT Surgery; ATTEND Surgery

== ENCOUNTER 2020-12-28 22:04 | Inpatient (IN) ==
[2020-12-28] MEDS ORDERED: ONDANSETRON 4 MG/2 ML VIAL IV STA (22:20)
[2020-12-28] MEDS ORDERED: PANTOPRAZOLE 40 MG VIAL IV STA (22:20)
[2020-12-28] MEDS ORDERED: HYDROmorphone 2 MG/1 ML VIAL IV STA (22:20)
[2020-12-28] MEDS: LEVOFLOXACIN INJ 500 MG/100 ML PREMIX IV SCH (23:05)
[2020-12-28 23:25] LABS: Basophils % 0.3 % (0.0-0.8); Eosinophils # 0.1 10*3/uL (0.0-0.87); Eosinophils % 0.3 % (0.00-10.9); Immature Granulocytes % 0.5 %; Immature Granulocytes Absolute 0.07 #; Lymphocytes # 1.1 10*3/uL (1.4-4.0); Lymphocytes % 7.2 % (21.3-54.2); Mean Corpuscular HGB Conc 34.1 GM/DL (32-36); Mean Corpuscular Volume 91.7 FL (87-102); Mean Platelet Volume 10.3 FL (9.6-12.0); Monocytes % 8.3 % (1.7-12.7); Neutrophils % 83.4 % (38.7-73.9); Platelet Count 267 T/CUMM (130-400); Red Cell Distribution Width 13.2 % (9.3-17.3); White Blood Count 15.5 T/CUMM (4-12)
[2020-12-28 23:46] LABS: Alanine Aminotransferase 30 U/L (13-56); Albumin 2.7 G/DL (3.4-5.0); Alkaline Phosphatase 59 U/L (45-117); Amylase 63 U/L (25-115); Aspartate Amino Transferase 26 U/L (0-37); Blood Urea Nitrogen 17 MG/DL (7-18); Calcium 9.4 MG/DL (8.5-10.1); Carbon Dioxide 27 MMOL/L (21-32); Estimated Glom Filtration Rate 48 ML/MIN; Glucose 130 MG/DL (74-106); Potassium 3.8 MMOL/L (3.5-5.1); Sodium 136 MMOL/L (136-145)
[2020-12-29] MEDS ORDERED: ACETAMINOPHEN 325 MG TABLET PO PRN (01:22)
[2020-12-29] MEDS ORDERED: ONDANSETRON 4 MG/2 ML VIAL IV PRN ×2 (01:22→08:51)
[2020-12-29] MEDS ORDERED: HYDROmorphone 2 MG/1 ML VIAL IV PRN ×3 (01:22→08:51)
[2020-12-29] MEDS: SODIUM CHLORIDE 0.9% 1,000 ML IV SCH ×3 (02:33→22:00)
[2020-12-29 05:02] LABS: Basophils % 0.2 % (0.0-0.8); Eosinophils # 0.1 10*3/uL (0.0-0.87); Eosinophils % 0.5 % (0.00-10.9); Hematocrit 39.6 VOL% (35.7-47.0); Hemoglobin 13.2 GM/DL (12.0-16.0); Immature Granulocytes % 0.4 %; Immature Granulocytes Absolute 0.05 #; Lymphocytes # 1.1 10*3/uL (1.4-4.0); Lymphocytes % 8.8 % (21.3-54.2); Mean Corpuscular HGB Conc 33.3 GM/DL (32-36); Mean Corpuscular Volume 94.1 FL (87-102); Mean Platelet Volume 10.7 FL (9.6-12.0); Monocytes % 8.6 % (1.7-12.7); Neutrophils % 81.5 % (38.7-73.9); Platelet Count 231 T/CUMM (130-400); Red Blood Count 4.21 MC/CUMM (3.8-5.5); Red Cell Distribution Width 13.3 % (9.3-17.3); White Blood Count 12.9 T/CUMM (4-12)
[2020-12-29 05:27] LABS: Albumin 3.2 G/DL (3.4-5.0); Bilirubin,Total 0.5 MG/DL (0.2-1.0); Calcium 8.4 MG/DL (8.5-10.1); Osmolality,Calculated 278.7 MOS/KG (273-304); Total Protein 6.9 G/DL (6.4-8.2)
[2020-12-29] MEDS: PANTOPRAZOLE 40 MG VIAL IV SCH (08:15)
[2020-12-29] MEDS: amLODIPine 5 MG TABLET PO SCH (09:14)
[2020-12-29] MEDS ORDERED: LEVOFLOXACIN INJ 750 MG/150 ML PREMIX IV SCH (22:00)
[2020-12-29] MEDS: LEVOFLOXACIN INJ 500 MG/100 ML PREMIX IV SCH (22:00)
[2020-12-30] MEDS: LEVOTHYROXINE 75 MCG TABLET PO SCH (05:55)
[2020-12-30] MEDS: SODIUM CHLORIDE 0.9% 1,000 ML IV SCH (07:33)
[2020-12-30] MEDS: PANTOPRAZOLE 40 MG VIAL IV SCH (09:22)
[2020-12-30] MEDS: amLODIPine 5 MG TABLET PO SCH (09:26)
[2020-12-31] MEDS: LEVOTHYROXINE 75 MCG TABLET PO SCH (06:14)
[2020-12-31] MEDS: amLODIPine 5 MG TABLET PO SCH (08:36)
[2020-12-31] MEDS: PANTOPRAZOLE 40 MG VIAL IV SCH (08:38)
[2020-12-31 12:03] VITALS: BP 142/52
== END 2020-12-31 14:34 | disposition home or self-care (01) | DRG 390 ==
LOC: EDBD → EDUNIT# → N.ED 22:04 → N.EDINP 22:36 → N.3E 12-29 00:09
PROVIDERS: ADMIT Surgery; ATTEND Surgery